=== PATIENT | female | born 1950 | race Caucasian/White ===

== ENCOUNTER 2018-06-21 15:12 | Emergency (ER) | payer OTHER ==
--- OUTSIDE RECORDS SUMMARY | 2018-06-21 15:13 | XMS REPORT ---
:1950 Author Organization [facility] Address [address] [place] [address] Care Team Providers Name Role Phone LICHA JEONG Primary Care Provider Unavailable LICHA JEONG Unavailable Unavailable Problems This patient has no known problems. Allergies, Adverse Reactions, Alerts This patient has no known allergies or adverse reactions. Medications This patient has no known medications. Results Test Description Test Time Test Comments Text Results Atomic Results Result Comments B-Type Natriuretic Peptide 2017-01-24 10:28:00 Test Item Value Reference Range Comments B-Type Natriuretic Peptide (test adzn=[id number]) 28.4 pg/mL 0.0-100.0 Sed Rate ESR ([place])2017-01-19 22:57:00 Test Item Value Reference Range Comments ESR (test code=HESR) 10 mm/Hr 0-20 Comprehensive Metabolic [id number] 21:35:00 Test Item Value Reference Range Comments Sodium (test code=NA) 138 mmol/L 135-145 Potassium (test code=K) 4.2 mmol/L 3.5-5.1 Chloride (test code=CL) 102 mmol/L 98-105 Carbon Dioxide (test 23 mmol/L 22-29 code=CO2) Glucose (test code=GLU) 110 mg/dL 70-115 Blood Urea Nitrogen (test 22 mg/dL 8-23 code=BUN) Creatinine (test 1.2 mg/dL 0.5-0.9 code=CREAT) Calcium (test code=CA) 9.3 mg/dL 8.3-10.5 Prot Total (test code=TP) 6.4 g/dL 6.4-8.3 Albumin (test code=ALB) 3.9 g/dL 3.5-5.2 A/G Ratio (test 1.6 Ratio code=AGRATIO) Globulin (test code=GLOB) 2.5 2.9-3.1 Bili Total (test 0.3 mg/dL 0.1-0.9 code=TBIL) Alk Phos (test 72 U/L 35-104 code=APHOS) AST (test code=AST) 25 U/L 1-32 ALT (test code=ALT) 35 U/L 1-33 BUN/Creatinine Ratio 18.3 (test code=BCRATIO) Anion Gap (test 13 mmol/L 7-16 code=AGAP) Estimated GFR (test 48 mL/min/1.73m2 eGFR (estimated Glomerular code=GFR) Filtration Rate) is an estimated value,calculated from the patient's serum creatinine using the MDRD equation.It is NOT the patient's actual GFR. The eGFR provides a more clinicallyuseful measure of kidney disease than serum creatinine alone.This calculation takes sex and race into account, if the informationis provided. If the race is not provided, and the patient isAfrican-Bangladeshi, multiply by 1.212. If sex is not provided, and thepatient is female, multiply by 0.742. Results for patients <18 years ofage have not been validated by the MDRD study and should be interpretedwith caution.eGFR Result Interpretation:eGFR > or=60 is in the Normal RangeeGFR < 60 may mean kidney diseaseeGFR < 15 may mean kidney failureRanges recommended by the National Kidney Foundation,http://nkdep.nih .gov Lipid [id number] 21:35:00 Test Item Value Reference Range Comments Cholesterol (test 229 mg/dL 0-200 code=CHOL) Triglycerides (test 125 mg/dL 9-200 code=TRIG) HDL (test code=HDL) 39 mg/dL 50-60 Chol/HDL (test 5.9 Ratio 0.0-4.4 code=CHOLPHDL) LDL, Calculated (test 165 mg/dL 0-130 (NOTE)RISK OF HEART code=LDLC) DISEASEPublished by Bangladeshi Heart AssociationAnalyte Optimal Boderline Increased RiskCHOL <200 200-239 >240TRIG <150 150-199 >200HDL Male: >60 <40HDL Female: >60 <50LDL <100 130-159 >160LDL NEAR OPTIMAL IS 100-129 VLDL (test code=VLDL) 25 mg/dL 5-40 LDL/HDL (test code=LDLPHDL) 4 CBC with [id number] 21:33:00 Test Item Value Reference Range Comments WBC (test code=WBC) 5.4 K/cumm 4.4-10.5 RBC (test code=RBC) 4.06 M/cumm 3.75-5.20 Hemoglobin (test code=HGB) 12.6 gm/dL 12.2-14.8 Hematocrit (test code=HCT) 39.1 % 36.5-44.4 MCV (test code=MCV) 96.2 fL 80-100 MCH (test code=MCH) 30.9 pg 27.0-32.5 MCHC (test code=MCHC) 32.1 g/dL 32.0-37.5 RDW (test code=RDW) 14.9 % 11.5-14.5 Platelet Count (test code=PLTCT) 212 K/cumm 140-440 MPV (test code=MPV) 10.3 fL Diff Method (test code=DIFFM) Auto Neutrophil (test code=NEUT) 44.1 % 36-70 Lymphocyte (test code=LYMPH) 42.0 % 12-44 Monocyte (test code=MONO) 7.0 % 0-11 Eosinophil (test code=EOS) 5.5 % 0-7 Basophil (test code=BASO) 1.4 % 0-2 Neutro Abs (test code=ANEUT) 2.4 K/cumm 1.6-7.4 Lymph Abs (test code=ALYMPH) 2.3 K/cumm 0.5-4.6 [place] Abs (test code=AMONO) 0.4 K/cumm 0.0-1.2 Eos Abs (test code=AEOS) 0.30 K/cumm 0.00-0.74 Baso Abs (test code=ABASO) 0.1 K/cumm 0.00-0.21
--- OUTSIDE RECORDS SUMMARY | 2018-06-21 15:13 | XMS REPORT | Clinical Summary ---
:1950 Author Organization [facility] Address [address] [place] [address] Care Team Providers Name Role Phone Riky Barajas MD Primary Care Provider Allergies Active Allergy Reactions Severity Noted Date Comments Ciprofloxacin 01/08/2017 Xbjibsj-Mda-Mnn Reductase Inhibitors 01/08/2017 Medications Medication Sig Dispensed Refills Start Date End Date Status irbesartan (AVAPRO) Take 150 mg by 0 Active 150 MG tablet mouth nightly. ALBUTEROL SULFATE Inhale. 0 Active (PROAIR HFA INHL) aspirin (ECOTRIN) 81 Take 81 mg by 0 Active MG enteric coated mouth daily. tablet traMADol (ULTRAM) 50 Take 1 tablet (50 15 tablet 0 09/18/2017 10/03/2017 mg tablet mg total) by mouth every 4 (four) hours as needed for moderate pain for up to 15 days. Active Problems Problem Noted Date Osteoarthritis of spine with radiculopathy, lumbar region 01/08/2017 Spondylolisthesis of lumbar region 01/08/2017 Scoliosis 01/08/2017 Neurogenic claudication 01/08/2017 Encounters Date Type Specialty Care Team Description 12/03/2017 Office Visit Orthopedic Surgery [place] Spondylosis of cervical region without myelopathy or radiculopathy (Primary Dx); MD Jake History of fusion of cervical spine; Spondylolisthesis of lumbar region; Other secondary scoliosis, lumbar region; Osteoarthritis of spine with radiculopathy, lumbar region 10/22/2017 Office Visit Orthopedic Surgery [place] Spondylolisthesis of lumbar region (Primary Dx); MD Jake Other secondary scoliosis, lumbar region; Osteoarthritis of spine with radiculopathy, lumbar region 09/18/2017 Office Visit Orthopedic Surgery Robin Barber Closed displaced fracture of metatarsal bone of left foot with routine healing, unspecified metatarsal, subsequent encounter (Primary Dx); MD Sidney Acute pain of left knee; Tendinitis 09/12/2017 Hospital Radiology Robin Barber Encounter MD Sidney 09/12/2017 Telephone Orthopedic Surgery [place], Bernarda Newman, ELYSSA 08/21/2017 Office Visit Orthopedic Surgery Robin Barber Closed displaced MD Sidney fracture of metatarsal bone of left foot with routine healing, unspecified metatarsal, subsequent encounter (Primary Dx) 08/21/2017 Hospital Radiology Robin Barber Closed fracture of shaft Encounter MD [place] of metatarsal bone of left foot, initial encounter 08/16/2017 Office Visit Orthopedic Surgery Robin Barber Acute left ankle pain (Primary Dx); MD Sidney Left foot pain; Closed fracture of shaft of metatarsal bone of left foot, initial encounter after 06/20/2017 Family History Medical History Relation Name Comments Cancer Father Heart disease Father Heart disease Mother Relation Name Status Comments Father Mother Social History Tobacco Use Types Packs/Day Years Used Date Never Smoker Smokeless Tobacco: Never Used Alcohol Use Drinks/Week oz/Week Comments No Sex Assigned at Date Recorded Not on file Job Start Date Occupation Industry Not on file Not on file Not on file Travel History Travel Start Travel End No recent travel history available. Last Filed Vital Signs Vital Sign Reading Time Taken Blood Pressure - - Pulse - - Temperature - - Respiratory Rate - - Oxygen Saturation - - Inhaled Oxygen Concentration - - Weight 109 kg (240 lb) 08/16/2017 1:15 PM ELEVATOR ERECTOR Height 177.8 cm (5' 10") 08/16/2017 1:15 PM ELEVATOR ERECTOR Body Mass Index 34.44 08/16/2017 1:15 PM ELEVATOR ERECTOR Plan of Treatment Health Maintenance Due Date Last Done Comments BREAST CANCER SCREENING 1999 COLON CANCER SCREENING 1999 SHINGRIX VACCINE (1 of 2) 1999 ZOSTER VACCINE 2009 PNEUMOCOCCAL POLYSACCHARIDE VACCINE AGE 65 AND OVER 2014 PNEUMOCOCCAL-13 2014 INFLUENZA VACCINE 02/27/2018 Procedures Procedure Name Priority Date/Time Associated Comments Diagnosis XR CERVICAL SPINE Routine 12/03/2017 1:33 Neck pain Results for this COMPLETE W FLEX EXT PM CDT procedure are in the results section. MI ARTHROCENTESIS Routine 09/18/2017 6:10 Tendinitis Results for this ASPIR&/INJ MAJOR PM ELEVATOR ERECTOR procedure are in JT/BURSA W/O US the results section. XR KNEE AP STANDING Routine 09/18/2017 2:13 Acute pain of left Results for this BILATERAL PM ELEVATOR ERECTOR knee procedure are in the results section. XR KNEE 3 VW LEFT Routine 09/18/2017 2:13 Acute pain of left Results for this PM ELEVATOR ERECTOR knee procedure are in the results section. CT LOWER EXTREMITY WO Routine 08/21/2017 8:58 Closed fracture of Results for this CONTRAST LEFT AM ELEVATOR ERECTOR shaft of procedure are in metatarsal bone of the results left foot, initial section. encounter XR ANKLE 3+ VW LEFT Routine 08/16/2017 1:28 Acute left ankle Results for this PM ELEVATOR ERECTOR pain procedure are in the results section. after 06/20/2017 Results XR Cervical Spine Complete w flex/ext (12/03/2017 1:33 PM CDT) Narrative Performed At 7 views of the cervical spine are reviewed. These demonstrate satisfactory [facility] sagittal and coronal balance. There is previous arthrodesis from C5-C7 with anterior plate and screws along with intervertebral cages. The arthrodesis appears to be solid. There is mild degeneration at C4-5 and C7-T1 with the latter being more severely affected. There is no instability on flexion-extension. Oblique views demonstrate satisfactory neural foraminal volume. Odontoid view is unremarkable. Performing Organization Address City/State/Zipcode Phone Number [facility] [address] [place] [address] Large Joint Arthrocentesis (09/18/2017 6:10 PM ELEVATOR ERECTOR) Narrative Performed At Robin Barber MD 09/18/20175:42 PM Large Joint Arthrocentesis Procedure Details Ultrasound guided: no Platelet Rich Plasma Used: no PRP Used Location: knee - L knee Left side: Needle size: 22 G Approach: medial Left knee medications administered: 10 mL bupivacaine 0.5 % (5 mg/mL); 10 mL lidocaine 10 mg/mL (1 %); 80 mg methylPREDNISolone acetate 40 mg/mL Patient tolerance: patient tolerated the procedure well with no immediate complications XR Knee Ap Standing Bilateral (09/18/2017 2:13 PM ELEVATOR ERECTOR) Narrative Performed At Bilateral Standing AP of the knees show no acute fracture, dislocation, or [facility] subluxation. The patella and knee is well aligned. Moderate osteoarthritis of the left knee with 50% joint space narrowing. Performing Organization Address City/State/Zipcode Phone Number FLORA MCINTOSH [address] [place] [address] XR Knee 3 Vw Left (09/18/2017 2:13 PM ELEVATOR ERECTOR) Narrative Performed At Bilateral PA Flex 45, Bilateral sunrise, and Lateral radiographs of the [facility] left knee obtained in clinic today show no acute fracture, dislocation, or subluxation. The patella is well aligned. There is evidence of moderate osteoarthritis of the left knee including subchondral sclerosis, osteophytes and >50% narrowing of the medial, lateral and patellofemoral compartments. Performing Organization Address [facility] [email or web address] Phone Number FLORA MCINTOSH [address] [place] [address] CT Lower Extremity Wo Contrast Left (08/21/2017 8:58 AM ELEVATOR ERECTOR) Narrative Performed At EXAMINATION:CT LOWER EXTREMITY WO CONTRAST LEFT [facility] CLINICAL HISTORY:S92.302A Fracture of unspecified metatarsal bone(s)left footinitial encounter for closed fracture, pain TECHNIQUE: Multiple axial images of the left lower extremity were obtained without contrast. CT imaging was performed with iterative reconstruction technique and/or automated exposure control to reduce radiation dose. 3-D volume imaging of the foot was performed using post processing on a separate workstation. COMPARISON:Left ankle radiographs dated 08/16/2017 FINDINGS: 1.There is a mildly comminuted nondisplaced fracture of the base of the second metatarsal laterally which extends into the second tarsometatarsal joint. 2.There is a nondisplaced fracture of the medial base of the third metatarsal which does not appear to definitively violate the third tarsometatarsal joint. 3.There is a nondisplaced fracture of the base of the fourth metatarsal with minimal extension of the fracture line into the fourth tarsometatarsal joint. 4.There is no evidence of a fracture of the base of the fifth metatarsal nor is there evidence of a fracture of the first metatarsal. 5.There is no evidence of malalignment of the tarsometatarsal complex. 6.There is no evidence of a fracture of the distal metatarsals or any of the phalanges. The cuneiforms and cuboid appear intact. The hindfoot appears intact. 7.Os navicular and os peroneum. Minimal nonspecific sclerosis of the hallux sesamoid bones. 8.Evaluation of the soft tissues demonstrates circumferential soft tissue swelling of the hindfoot and midfoot. There is no abnormal subluxation of the peroneal tendons. The flexor and extensor tendons appear continuous. Insertional Achilles enthesopathy and plantar calcaneal enthesopathy. IMPRESSION: 1.Fractures of the bases of the second, third, and fourth metatarsals as detailed above. 2.No evidence of malalignment of the tarsometatarsal complex. If there is evidence of instability, consider further evaluation with MRI to assess the integrity of the Lisfranc ligament. [facility]-[id number] Procedure Note [facility], Radiology Results Incoming - 08/21/2017 9:13 AM ELEVATOR ERECTOR EXAMINATION: CT LOWER EXTREMITY WO CONTRAST LEFT CLINICAL HISTORY: S92.302A Fracture of unspecified metatarsal bone(s) left foot initial encounter for closed fracture, pain TECHNIQUE: Multiple axial images of the left lower extremity were obtained without contrast. CT imaging was performed with iterative reconstruction technique and/or automated exposure control to reduce radiation dose. 3-D volume imaging of the foot was performed using post processing on a separate workstation. COMPARISON: Left ankle radiographs dated 08/16/2017 FINDINGS: 1. There is a mildly comminuted nondisplaced fracture of the base of the second metatarsal laterally which extends into the second tarsometatarsal joint. 2. There is a nondisplaced fracture of the medial base of the third metatarsal which does not appear to definitively violate the third tarsometatarsal joint. 3. There is a nondisplaced fracture of the base of the fourth metatarsal with minimal extension of the fracture line into the fourth tarsometatarsal joint. 4. There is no evidence of a fracture of the base of the fifth metatarsal nor is there evidence of a fracture of the first metatarsal. 5. There is no evidence of malalignment of the tarsometatarsal complex. 6. There is no evidence of a fracture of the distal metatarsals or any of the phalanges. The cuneiforms and cuboid appear intact. The hindfoot appears intact. 7. Os navicular and os peroneum. Minimal nonspecific sclerosis of the hallux sesamoid bones. 8. Evaluation of the soft tissues demonstrates circumferential soft tissue swelling of the hindfoot and midfoot. There is no abnormal subluxation of the peroneal tendons. The flexor and extensor tendons appear continuous. Insertional Achilles enthesopathy and plantar calcaneal enthesopathy. IMPRESSION: 1. Fractures of the bases of the second, third, and fourth metatarsals as detailed above. 2. No evidence of malalignment of the tarsometatarsal complex. If there is evidence of instability, consider further evaluation with MRI to assess the integrity of the Lisfranc ligament. [facility]-[id number] Performing Organization Address [facility] [[email or web address] Phone Number [facility] [address] [place] [address] XR Ankle 3+ Vw Left (08/16/2017 1:28 PM ELEVATOR ERECTOR) Narrative Performed At Left ankle x-rays 3 views AP, mortise, lateral show no acute subluxation [facility] or dislocation. Possible non-displaced fracture at the base of the fifth metatarsal. Evidence of possible old injury to the medial malleolus. Performing Organization Address [facility] [[email or web address] Phone Number [facility] [address] [place] [address] after 06/20/2017 Insurance Payer Benefit Plan / Group Subscriber ID Type Phone Address AETNA MEDICARE AETNA MEDICARE HMO/PPO [facility] xxxxxxxx HMO Advance Directives Patient has advance care planning documents on file. For more information, please contact:Newton Irizarry[address] [place] [address]
[2018-06-21 16:15] LABS: Absolute Lymphocytes (CBC) 1.1 K/uL (0.7-4.9); Absolute Monocytes 0.1 K/uL (0.1-1.3); Absolute Neutrophil 6.5 K/uL (1.8-8.0); Basophils % 0.4 % (0-1.3); Eosinophils % 0.2 % (0-4.4); Hematocrit 39.1 % (36.0-45.0); MCH 31.7 pg (27.0-35.0); MCV 92.3 fL (80-100); MPV 8.6 fL (7.6-11.3); Monocytes % 0.7 % (3.3-12.3); RBC Red Blood Cell Count 4.24 M/uL (3.86-4.86)
[2018-06-21 16:18] LABS: Protime INR 1.05
[2018-06-21 16:38] LABS: ALT/SGPT 48 U/L (12-78); AST/SGOT 31 U/L (15-37); Albumin 3.5 g/dL (3.4-5.0); Alkaline Phosphatase 99 U/L (45-117); BUN Blood Urea Nitrogen 19 mg/dL (7-18); Bicarbonate 24 mmol/L (21-32); Bilirubin Direct < 0.1 mg/dL (0-0.2); Bilirubin Total 0.3 mg/dL (0.2-1.0); Glucose Level 179 mg/dL (74-106); Magnesium 2.2 mg/dL (1.8-2.4); NT PRO-BNP 103 pg/mL (<125); Potassium 3.8 mmol/L (3.5-5.1); Protein, Total 7.3 g/dL (6.4-8.2); Sodium Level 143 mmol/L (136-145); T3 Free 2.52 pg/mL (2.18-3.98); Troponin (Emerg Dept Use Only) < 0.02 ng/mL (0.0-0.045)
[2018-06-21] MEDS ORDERED: NA CHLORIDE 0.9% 500 ML ONE (17:31)
--- NOTE | 2018-06-21 18:21 | RAD REPORT ---
EXAM DESCRIPTION: RAD - Chest Pa And Lat (2 Views) - 06/21/2018 4:33 pm CLINICAL HISTORY: Chest pain, cough and congestion, palpitations COMPARISON: September 2013 TECHNIQUE: PA and lateral views of the chest were obtained. FINDINGS: The lungs are clear of a peripheral mass or consolidation. Lung markings are similar to c omparison. Heart size is normal and central vasculature is within normal limits. No pleural effusion or pneumothorax seen. Bony degenerative changes are present similar to comparison. No aortic abnorm ality. IMPRESSION: Mild chronic interstitial lung disease similar to comparison. No acute finding.
--- NOTE | 2018-06-21 19:33 | ER ---
Nurse's Notes [facility] Name: Moraima Handy Age: 68 yrs Sex: Female : 1950 Arrival Date: 06/21/2018 Time: 15:15 Bed 6 Private MD: Riky Barajas Diagnosis: Cough;Other chest pain;Palpitations Presentation: 06/21 15:18 Presenting complaint: Patient states: "I was seen at urgent care this morning for a aa5 cough, congestion, and ear ache and they gave me a steroid shot and a few hours later I started having chest pain and palpitations". Pt reports being diagnosed with acute pharyngitis and sinusitis today. Pt reports receiving steroid injection approximately at 0930 and symptoms began at 1200. Pt also reports taking Albuterol inhaler, Z-adrienne, and Tessalon Perles. Transition of care: patient was not received from another setting of care. Onset of symptoms was May 2018. Risk Assessment: Do you want to hurt yourself or someone else? Patient reports no desire to harm self or others. Initial Sepsis Screen: Does the patient meet any 2 criteria? No. Patient's initial sepsis screen is negative. Does the patient have a suspected source of infection? No. Patient's initial sepsis screen is negative. Care prior to arrival: None. 15:18 Method Of Arrival: Ambulatory aa5 15:18 Acuity: ANIKA 3 aa5 Triage Assessment: 15:30 General: Appears in no apparent distress. comfortable, obese, Behavior is cooperative, bp appropriate for age, anxious. Pain: Complains of pain in chest. Cardiovascular: Rhythm is sinus tachycardia. 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 - Social history:: Smoking status: Patient/guardian denies using tobacco. - Ebola Screening: : No symptoms or risks identified at this time. Screenin:32 Abuse screen: Denies threats or abuse. Denies injuries from another. Nutritional bp screening: No deficits noted. Tuberculosis screening: No symptoms or risk factors identified. Fall Risk None identified. Assessment: 15:30 General: Appears in no apparent distress. comfortable, obese, Behavior is cooperative, bp appropriate for age, anxious. Pain: Complains of pain in chest Pain does not radiate. Pain began 3 hours ago. Neuro: Level of Consciousness is awake, alert, obeys commands, Oriented to person, place, time, situation, Appropriate for age. Cardiovascular: Rhythm is sinus rhythm. Respiratory: Airway is patent Respiratory effort is even, unlabored, Respiratory pattern is regular, symmetrical. GI: No signs and/or symptoms were reported involving the gastrointestinal system. : No signs and/or symptoms were reported regarding the genitourinary system. EENT: No deficits noted. Derm: No deficits noted. Musculoskeletal: Circulation, motion, and sensation intact. Range of motion: intact in all extremities. 17:32 Reassessment: ALL CURRENT STUDIES COMPLETED, RESULTS PENDING. VS STABLE ON MONITOR. bp 19:15 General: Appears in no apparent distress. comfortable, Behavior is calm, cooperative, rr5 appropriate for age. Pain: Denies pain. Neuro: Level of Consciousness is awake, alert, obeys commands, Oriented to person, place, time, situation, Appropriate for age. Cardiovascular: Denies chest pain, Capillary refill < 3 seconds Patient's skin is warm and dry. Respiratory: Airway is patent Respiratory effort is even, unlabored, Respiratory pattern is regular, symmetrical. GI: No signs and/or symptoms were reported involving the gastrointestinal system. : No signs and/or symptoms were reported regarding the genitourinary system. EENT: No signs and/or symptoms were reported regarding the EENT system. Derm: No signs and/or symptoms reported regarding the dermatologic system. Musculoskeletal: Circulation, motion, and sensation intact. Capillary refill < 3 seconds, Range of motion: intact in all extremities. 19:30 Reassessment: awaiting for laboratory results. rr5 Vital Signs: 15:23 BP 148 / 67; Pulse 102; Resp 18 S; Temp 98.0(TE); Pulse Ox 98% on R/A; Weight 104.33 kg aa5 (R); Height 5 ft. 10 in. (177.80 cm) (R); Pain 5/10; 16:30 BP 126 / 57; Pulse 97; Resp 16; Pulse Ox 99% ; bp 17:30 BP 150 / 70; Pulse 103; Resp 20; Pulse Ox 100% ; bp 18:30 BP 131 / 57; Pulse 91; Resp 27; Pulse Ox 100% ; bp 19:15 BP 145 / 65; Pulse 87; Resp 17; Temp 97.8(T); Pulse Ox 100% on R/A; Pain 0/10; rr5 20:00 BP 135 / 75; Pulse 80; Resp 17; Pulse Ox 99% on R/A; rr5 15:23 Body Mass Index 33.00 (104.33 kg, 177.80 cm) aa5 ED Course: 15:15 Patient arrived in ED. mr 15:16 Riky Barajas MD is Private Physician. mr 15:18 Arm band placed on. aa5 15:22 Triage completed. aa5 15:25 Alessandro Ferreira PA is PHCP. cp 15:25 Alessandro Ford MD is Attending Physician. cp 15:30 Natanael Jasso, JOSÉ MIGUEL is Primary Nurse. bp 15:32 Patient has correct armband on for positive identification. Bed in low position. Call bp light in reach. Side rails up X2. erp technical lead on. Pulse ox on. NIBP on. 16:04 Initial lab(s) drawn, by me, sent to lab. Inserted saline lock: 20 gauge in right jb1 antecubital area, using aseptic technique. Blood collected. 16:04 EKG done, by ED staff, reviewed by Alessandro ANDERSEN. jb1 16:31 X-ray completed. Patient tolerated procedure well. Patient moved back from radiology. ls3 16:32 XRAY Chest Pa And Lat (2 Views) In Process Unspecified. EDMS 19:15 Patient maintains SpO2 saturation greater than 95% on room air. rr5 19:32 Riky Barajas MD is Referral Physician. cp 20:00 No provider procedures requiring assistance completed. IV discontinued, intact, rr5 bleeding controlled, No redness/swelling at site. Pressure dressing applied. Administered Medications: 16:20 Drug: NS 0.9% 500 ml Route: IV; Rate: bolus; Site: right antecubital; bp Outcome: 19:32 Discharge ordered by . cp 19:55 Discharged to home ambulatory. rr5 19:55 Condition: stable 19:55 Discharge instructions given to patient, family, Instructed on discharge instructions, follow up and referral plans. medication usage, Demonstrated understanding of instructions, follow-up care, medications, Prescriptions given X 2. 20:00 Patient left the ED. lp1 Signatures: Dispatcher [employer] EDRoni Morrow jb1 Mcelroy, Larissa mr Alessio, Trisha, RN RN aa5 Ailyn Farias RN RN lp1 Alessandro Ferreira PA PA cp Peltier, Brian, RN RN bp Giorgi Francisco ls3 John Weiss, RN RN rr5
--- NOTE | 2018-06-21 19:33 | EDPHYS ---
Physician Documentation [facility] Name: Moraima Handy Age: 68 yrs Sex: Female : 1950 Arrival Date: 06/21/2018 Time: 15:15 Bed 6 Private MD: Riky Barajas ED Physician Alessandro Ford HPI: 06/21 15:50 This 68 yrs old Female presents to ER via Ambulatory with complaints of Chest cp Pain. 15:50 The patient presents with a history of heart racing. cp 15:50 Context: The symptoms occur at rest. Onset: The symptoms/episode began/occurred today. cp Duration: The patient or guardian reports a single episode, that is still ongoing, and unchanged. Associated signs and symptoms: Pertinent positives: chest pain, cough, Pertinent negatives: SOB, syncope, near-syncope. Severity of symptoms: in the emergency department the symptoms are unchanged despite home interventions. 15:50 Patient reports receiving steroid injection from urgent care this morning for cp cough/congestion and while at home starting noticing heart racing and mild chest pain. Patient reports she did give herself an albuterol breathing treatment but after symptoms started. 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 - Social history:: Smoking status: Patient/guardian denies using tobacco. - Ebola Screening: : No symptoms or risks identified at this time. ROS: 16:00 Constitutional: Negative for body aches, chills, fever, poor PO intake. cp 16:00 Eyes: Negative for injury, pain, redness, and discharge. cp 16:00 ENT: Negative for drainage from ear(s), ear pain, difficulty swallowing, difficulty handling secretions. 16:00 Cardiovascular: Positive for chest pain, with cough, palpitations, Negative for edema. 16:00 Respiratory: Positive for cough, with no reported sputum, Negative for shortness of breath, wheezing. 16:00 Abdomen/GI: Negative for abdominal pain, nausea, vomiting, and diarrhea, black/tarry stool, rectal bleeding. 16:00 Back: Negative for radiated pain. 16:00 Skin: Negative for cellulitis, rash. 16:00 Neuro: Negative for altered mental status, headache, numbness, weakness. 16:00 All other systems are negative. Exam: 16:05 Constitutional: The patient appears in no acute distress, alert, awake, comfortable, cp non-diaphoretic, non-toxic, well developed, well nourished. 16:05 Head/Face: Normocephalic, atraumatic. Eyes: Pupils equal round and reactive to light, cp extra-ocular motions intact. Lids and lashes normal. Conjunctiva and sclera are non-icteric and not injected. Cornea within normal limits. Periorbital areas with no swelling, redness, or edema. ENT: Nares patent. No nasal discharge, no septal abnormalities noted. Tympanic membranes are normal and external auditory canals are clear. Oropharynx with no redness, swelling, or masses, exudates, or evidence of obstruction, uvula midline. Mucous membranes moist. Neck: Trachea midline, no thyromegaly or masses palpated, and no cervical lymphadenopathy. Supple, full range of motion without nuchal rigidity, or vertebral point tenderness. No Meningismus. Chest/axilla: Normal chest wall appearance and motion. Nontender with no deformity. No lesions are appreciated. 16:05 Cardiovascular: Rate: tachycardic, Rhythm: regular, Heart sounds: murmur, not appreciated, rub, not appreciated, gallop, not appreciated, Edema: is not appreciated, JVD: is not appreciated. 16:05 Respiratory: the patient does not display signs of respiratory distress, Respirations: normal, no use of accessory muscles, no retractions, no splinting, no tachypnea, labored breathing, is not present, Breath sounds: decreased breath sounds, are not appreciated, stridor, is not appreciated, wheezing: is not appreciated. 16:05 Abdomen/GI: Inspection: abdomen appears normal, Bowel sounds: active, all quadrants, Palpation: abdomen is soft and non-tender, in all quadrants, rebound tenderness, is not appreciated, involuntary guarding, is not appreciated. 16:05 Back: pain, is absent, ROM is normal. 16:05 Skin: cellulitis, is not appreciated, no rash present. 16:05 Neuro: Orientation: to person, place \T\ time. Mentation: is normal, Cerebellar function: is grossly normal, Motor: moves all fours, strength is normal, Sensation: is normal. 19:00 ECG was reviewed by the Attending Physician. cp Vital Signs: 15:23 BP 148 / 67; Pulse 102; Resp 18 S; Temp 98.0(TE); Pulse Ox 98% on R/A; Weight 104.33 kg aa5 (R); Height 5 ft. 10 in. (177.80 cm) (R); Pain 5/10; 16:30 BP 126 / 57; Pulse 97; Resp 16; Pulse Ox 99% ; bp 17:30 BP 150 / 70; Pulse 103; Resp 20; Pulse Ox 100% ; bp 18:30 BP 131 / 57; Pulse 91; Resp 27; Pulse Ox 100% ; bp 19:15 BP 145 / 65; Pulse 87; Resp 17; Temp 97.8(T); Pulse Ox 100% on R/A; Pain 0/10; rr5 20:00 BP 135 / 75; Pulse 80; Resp 17; Pulse Ox 99% on R/A; rr5 15:23 Body Mass Index 33.00 (104.33 kg, 177.80 cm) aa5 MDM: 15:25 Patient medically screened. cp 16:00 Differential diagnosis: arrythmia, dehydration, anxiety, acute WA. cp 19:30 Data reviewed: vital signs, nurses notes, lab test result(s), EKG, radiologic studies, cp plain films, and as a result, I will discharge patient. 19:30 Test interpretation: by ED physician or midlevel provider: ECG, plain radiologic cp studies. 19:31 Response to treatment: the patient's symptoms have markedly improved after treatment, cp VSS. Patient reports symptoms improved. Will discharge to home for continued monitoring. 06/21 15:46 Order name: Basic Metabolic Panel; Complete Time: 16:46 cp 06/21 16:46 Interpretation: Normal except: CL 110; GLUC 179; BUN 19; GFR 49. cp 06/21 15:46 Order name: CBC with Diff; Complete Time: 16:36 cp 06/21 16:36 Interpretation: Normal except: JANY% 84.7; LYM% 14.0; MN% 0.7. cp 06/21 15:46 Order name: LFT's; Complete Time: 16:46 cp 06/21 16:46 Interpretation: Normal except: GLOB 3.8; A/G 0.9. cp 06/21 15:46 Order name: Magnesium; Complete Time: 16:46 cp 06/21 15:46 Order name: NT PRO-BNP; Complete Time: 16:46 cp 06/21 15:46 Order name: PT-INR; Complete Time: 16:36 cp 06/21 15:46 Order name: Troponin (emerg Dept Use Only); Complete Time: 16:46 06/21 15:46 Order name: EKG; Complete Time: 15:47 cp 06/21 15:46 Order name: TSH; Complete Time: 16:46 cp 06/21 15:46 Order name: T3 Free; Complete Time: 16:46 06/21 16:08 Order name: XRAY Chest Pa And Lat (2 Views); Complete Time: 18:27 cp 06/21 18:27 Order name: EKG; Complete Time: 18:29 cp 06/21 18:27 Order name: Troponin I; Complete Time: 19:24 06/21 15:46 Order name: Cardiac monitoring; Complete Time: 15:49 06/21 15:46 Order name: EKG - Nurse/Tech; Complete Time: 15:49 cp 06/21 15:46 Order name: IV Saline Lock; Complete Time: 16:04 06/21 15:46 Order name: Labs collected and sent; Complete Time: 16:04 06/21 15:46 Order name: O2 Per Protocol; Complete Time: 15:49 06/21 15:46 Order name: O2 Sat Monitoring; Complete Time: 15:49 06/21 18:27 Order name: EKG - Nurse/Tech; Complete Time: 18:57 cp EC:00 Rate is 92 beats/min. Rhythm is regular. MA interval is normal. QRS interval is normal. cp QT interval is normal. T waves are Flattened in lead III. Interpreted by me. Reviewed by me. Administered Medications: 16:20 Drug: NS 0.9% 500 ml Route: IV; Rate: bolus; Site: right antecubital; bp Disposition: 06/21/18 19:32 Discharged to Home. Impression: Cough, Other chest pain, Palpitations. - Condition is Stable. - Discharge Instructions: Nonspecific Chest Pain, Palpitations, Cool Mist Vaporizer, Aspirin and Your Heart. - Prescriptions for Anaprox DS 550 mg Oral Tablet - take 1 tablet by ORAL route every 12 hours As needed; 20 tablet. Pepcid 20 mg Oral Tablet - take 1 tablet by ORAL route every 12 hours for 5 days; 10 tablet. - Medication Reconciliation Form, Thank You Letter, Antibiotic Education, Prescription Opioid Use form. - Follow up: Riky Barajas MD; When: 2 - 3 days; Reason: Recheck today's complaints. - Problem is new. - Symptoms have improved. Addendum: 06/24/2018 08:14 Co-signature as Attending Physician, Alessandro Ford MD I agree with the assessment and c mcdaniel plan of care. Signatures: Dispatcher [employer] EDGA Alessandro Ford MD MD cha Calderon, Audri, RN RN aa5 Ailyn Farias RN RN lp1 Alessandro Ferreira PA PA Natanael James, RN RN bp Corrections: (The following items were deleted from the chart) 06/21 20:00 19:32 06/21/2018 19:32 Discharged to Home. Impression: Cough; Other chest pain; lp1 Palpitations. Condition is Stable. Forms are Medication Reconciliation Form, Thank You Letter, Antibiotic Education, Prescription Opioid Use. Follow up: Riky Barajas; When: 2 - 3 days; Reason: Recheck today's complaints. Problem is new. Symptoms have improved. cp
--- NOTE | 2018-06-22 06:59 | EKG ---
Test Date: 2018-06-21 Test Time: 18:50:04 [employer]mw Sales Consultant: LINDA MEASUREMENT RESULTS: Intervals: Rate: 92 NM: 154 QRSD: 94 QT: 388 QTc: 479 [place]: P: 48 NM: 154 QRS: -12 T: 27 INTERPRETIVE STATEMENTS: Normal sinus rhythm Normal ECG Compared to ECG 06/21/2018 15:39:17 ST (T wave) deviation no longer present Electronically Signed On 06-22-18 06:58:44 RESOURCE MANAGER by Lee Sy
--- NOTE | 2018-06-22 07:01 | EKG ---
Test Date: 2018-06-21 Test Time: 15:39:17 City Planning Aide: LINDA MEASUREMENT RESULTS: Intervals: Rate: 100 UT: 150 QRSD: 94 QT: 374 QTc: 482 [place]: P: 60 UT: 150 QRS: -16 T: 53 INTERPRETIVE STATEMENTS: Normal sinus rhythm Nonspecific ST abnormality Abnormal ECG Compared to ECG 10/24/2013 07:24:46 ST (T wave) deviation now present Electronically Signed On 06-22-18 07:00:28 DRESSAGE INSTRUCTOR by Lee Sy
== END 2018-06-21 20:00 | disposition home or self-care (01) ==
LOC: ER 15:12
DX: R07.89 Other chest pain (principal); R00.2 Palpitations; I10 Essential (primary) hypertension; Z88.1 Allergy status to other antibiotic agents
CPT/HCPCS: 36415; 71046; 80048; 80076; 83735; 83880; 84443; 84481; 84484; 85025; 85610; 93005; 99285

== ENCOUNTER 2019-03-19 00:09 | Emergency (ER) | payer OTHER ==
--- OUTSIDE RECORDS SUMMARY | 2019-03-19 00:12 | XMS REPORT | Clinical Summary ---
:1950 Author Organization [facility] Address [address] [place] [address] Care Team Providers Name Role Phone Riky Barajas MD Primary Care Provider Allergies Active Allergy Reactions Severity Noted Date Comments Ciprofloxacin 01/08/2017 Hiokgig-Ruk-Eep Reductase Inhibitors 01/08/2017 Medications Medication Sig Dispensed Refills Start Date End Date Status irbesartan Take 150 mg 0 Active (AVAPRO) 150 MG by mouth tablet nightly. ALBUTEROL Inhale. 0 Active SULFATE (PROAIR HFA INHL) aspirin Take 81 mg by 0 Active (ECOTRIN) 81 MG mouth daily. enteric coated tablet gabapentin Take 1 90 capsule 1 08/07/2018 Discontinued (NEURONTIN) 100 capsule (100 9 (Reorder) mg capsule mg total) by mouth 3 (three) times a day for 30 days. celecoxib Take 1 60 capsule 0 08/07/2018 (CeleBREX) 100 capsule (100 9 MG capsule mg total) by mouth 2 (two) times a day for 30 days. gabapentin Take 1 90 capsule 1 09/03/2018 (NEURONTIN) 100 capsule (100 9 mg capsule mg total) by mouth 3 (three) times a day for 30 days. Active Problems Problem Noted Date Osteoarthritis of spine with radiculopathy, lumbar region 01/08/2017 Spondylolisthesis of lumbar region 01/08/2017 Scoliosis 01/08/2017 Neurogenic claudication 01/08/2017 Encounters Date Type Specialty Care Team Description 10/17/2018 Orders Only Orthopedic Surgery [place] Spondylolisthesis of lumbar region (Primary Dx); MD Jake Other spondylosis with radiculopathy, lumbar region; Other secondary scoliosis, lumbar region 10/16/2018 Office Visit Orthopedic Surgery [place] Other spondylosis with radiculopathy, lumbar region (Primary Dx); MD Jake Spondylolisthesis of lumbar region; Other secondary scoliosis, lumbar region 09/03/2018 Refill Orthopedic Surgery [place] MD 08/07/2018 Office Visit Orthopedic Surgery [place] Other spondylosis with radiculopathy, lumbar region (Primary Dx); MD Jake Spondylolisthesis of lumbar region; Other secondary scoliosis, lumbar region after 03/18/2018 Family History Medical History Relation Name Comments [...] travel history available. 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 after 03/18/2018 Results XR Lumbar Spine Complete W Flex and Ext (08/07/2018 3:45 PM MUSIC WORKER) Specimen Narrative Performed At 7 views of the lumbar spine are reviewed.These demonstrate satisfactory HM RADIANT coronal balance.The patient stands with a level pelvis.There is a degenerative appearing lumbar scoliosis present in the AP radiograph. There are 4 mobile lumbar segments based on the AP radiograph as judged from the last rib bearing segment which I labeled T12.Lateral view demonstrates satisfactory sagittal balance.There is multiple levels of disc degeneration with osteophyte formation.There is a grade 1 degenerative spondylolisthesis at L4-L5 with a transitional L5-S1 segment. There is no instability on flexion-extension views aside from a mild increase in the spondylolisthesis at L4-L5.Oblique views demonstrate multilevel bilateral facet joint osteoarthritis. Performing Organization Address [facility] Phone Number [employer] [address] [place] [address] after 03/18/2018 Insurance Payer Benefit Plan / Subscriber ID Effective Dates Phone Address Type Group AETNA MEDICARE AETNA MEDICARE xxxxxxxx 2014-Present HMO HMO/PPO [facility] Guarantor Name Account Type Relation to Date of Phone Billing Patient Address Moraima Handy Personal/Family Self 1950 [address] (Home) [place] [phone] (Work) Advance Directives For more information, please contact: [phone] Type Date Recorded Patient Dirt Shoveler Explanation Advance Directives, Living Will and Medical Power of Power Shovel Engineer
--- OUTSIDE RECORDS SUMMARY | 2019-03-19 00:12 | XMS REPORT ---
:1950 [facility] Address [address] [place] [address] Care Team Providers Name Role Phone LICHA [...] Reference Range Comments B-Type Natriuretic Peptide (test prry=243988) 28.4 pg/mL 0.0-100.0 Sed Rate ESR ([place])2017-01-19 22:57:00 Test Item Value Reference Range Comments ESR (test code=HESR) 10 mm/Hr 0-20 Comprehensive Metabolic [id number] 21:35:00 Test Item Value Reference Range Comments [...] race is not provided, and the patient isAfrican-Afghan, multiply by 1.212. If sex is not provided, and thepatient is female, multiply by 0.742. Results for patients <18 years ofage have not been validated by the MDRD study and should be interpretedwith caution.eGFR Result Interpretation:eGFR > or=60 is in the Normal RangeeGFR < 60 may mean kidney diseaseeGFR < 15 may mean kidney failureRanges recommended by the National Kidney Foundation,http://nkdep.nih .gov Lipid [id number] 21:35:00 Test Item Value Reference Range Comments Cholesterol (test 229 mg/dL 0-200 code=CHOL) Triglycerides (test 125 mg/dL 9-200 code=TRIG) HDL (test code=HDL) 39 mg/dL 50-60 Chol/HDL (test 5.9 Ratio 0.0-4.4 code=CHOLPHDL) LDL, Calculated (test 165 mg/dL 0-130 (NOTE)RISK OF HEART code=LDLC) DISEASEPublished by Afghan Heart AssociationAnalyte Optimal Boderline Increased RiskCHOL <200 200-239 >240TRIG <150 150-199 >200HDL Male: >60 <40HDL Female: >60 <50LDL <100 130-159 >160LDL NEAR OPTIMAL IS 100-129 VLDL (test code=VLDL) 25 mg/dL 5-40 LDL/HDL (test code=LDLPHDL) 4 CBC with [id number] 21:33:00 Test Item Value Reference Range Comments [...] Lymph Abs (test code=ALYMPH) 2.3 K/cumm 0.5-4.6 Stevens Abs (test code=AMONO) 0.4 K/cumm 0.0-1.2 Eos Abs (test code=AEOS) 0.30 K/cumm 0.00-0.74 Baso Abs (test code=ABASO) 0.1 K/cumm 0.00-0.21
[2019-03-19] MEDS ORDERED: NA CHLORIDE 0.9% 1,000 ML ONE (01:03)
[2019-03-19] MEDS ORDERED: ACETAMINOPHEN 500 MG TAB ONE (01:03)
[2019-03-19 01:14] LABS: Absolute Lymphocytes (CBC) 1.5 K/uL (0.7-4.9); Basophils % 0.9 % (0-1.3); Hematocrit 40.5 % (36.0-45.0); Lymphocytes % 15.8 % (15.3-44.8); MPV 8.6 fL (7.6-11.3); RBC Red Blood Cell Count 4.34 M/uL (3.86-4.86)
[2019-03-19 01:16] LABS: Urine Blood 1+ (NEG); Urine Glucose NEGATIVE (NEG); Urine Protein NEGATIVE (NEG); Urine Specific Gravity 1.025 (1.005-1.030)
[2019-03-19 01:35] LABS: ALT/SGPT 41 U/L (12-78); AST/SGOT 27 U/L (15-37); Albumin 3.5 g/dL (3.4-5.0); Alkaline Phosphatase 108 U/L (45-117); BUN Blood Urea Nitrogen 21 mg/dL (7-18); Bicarbonate 28 mmol/L (21-32); Bilirubin Direct < 0.1 mg/dL (0-0.2); Bilirubin Total 0.3 mg/dL (0.2-1.0); Glucose Level 102 mg/dL (74-106); Lipase 142 U/L (73-393); NT PRO-BNP 43 pg/mL (<125); Potassium 3.9 mmol/L (3.5-5.1); Protein, Total 6.9 g/dL (6.4-8.2); Sodium Level 144 mmol/L (136-145); Troponin (Emerg Dept Use Only) < 0.02 ng/mL (0.0-0.045)
[2019-03-19] MEDS ORDERED: CEFTRIAXONE/SWI 1gm 1 GM/10 ML SYR ONE (02:29)
--- NOTE | 2019-03-19 03:04 | ER ---
Nurse's Notes [facility] Name: Moraima Handy Age: 68 yrs Sex: Female : 1950 Arrival Date: 03/19/2019 Time: 00:11 Bed 18 Private MD: Diagnosis: Headache;Urinary tract infection, site not specified Presentation: 03/19 00:22 Presenting complaint: Patient states: pt c/o fatigue, chills, fever, back pain, neck ak1 pain, headache pain started at 199903/18/19. Transition of care: patient was not received from another setting of care. Onset of symptoms was March 19, 2019. Risk Assessment: Do you want to hurt yourself or someone else? Patient reports no desire to harm self or others. Initial Sepsis Screen: Does the patient meet any 2 criteria? No. Patient's initial sepsis screen is negative. Does the patient have a suspected source of infection? No. Patient's initial sepsis screen is negative. Care prior to arrival: None. 00:22 Acuity: ANIKA 3 ak1 00:22 Method Of Arrival: Ambulatory ak1 Triage Assessment: 00:24 General: Appears uncomfortable, well groomed. ak1 03:22 Headache History: Denies prior headaches. Pain: Also complains of. Pain: Pain. tr5 Historical: - Allergies: 00:24 Cipro; ak1 - Home Meds: 00:24 irbesartan 150 mg oral tab 1 tab once daily [Active]; ak1 - PMHx: 00:24 Hypertension; ak1 - PSHx: 00:24 vericose veins treated left leg 04/2013; Hysterectomy; Appendectomy; Neck ak1 surgery-hardware; Back surgery; Cholecystectomy; - Immunization history:: Adult Immunizations unknown. - Social history:: Smoking status: Patient/guardian denies using tobacco. - Ebola Screening: : No symptoms or risks identified at this time. - Family history:: not pertinent. Screenin/20 12:55 Abuse screen: Denies threats or abuse. Nutritional screening: No deficits noted. tr5 Tuberculosis screening: No symptoms or risk factors identified. Fall Risk None identified. Assessment: 12:50 General: Appears in no apparent distress. Behavior is calm, cooperative. Pain: tr5 Complains of pain in face Pain does not radiate. Quality of pain is described as aching, pressure, Pain began gradually, Is continuous, Alleviated by rest. Neuro: Level of Consciousness is awake, alert, obeys commands, Oriented to person, place, time, situation, Popcorn Vendor are equal bilaterally Moves all extremities. Gait is steady, Speech is normal. Neuro:. Cardiovascular: Heart tones present Bruits absent Capillary refill < 3 seconds. Respiratory: Airway is patent Trachea midline Respiratory effort is even, unlabored, Respiratory pattern is regular, symmetrical, Breath sounds are clear bilaterally. GI: No signs and/or symptoms were reported involving the gastrointestinal system. : No signs and/or symptoms were reported regarding the genitourinary system. EENT: No signs and/or symptoms were reported regarding the EENT system. Derm: No signs and/or symptoms reported regarding the dermatologic system. Skin is intact, Skin is dry, Skin is normal. Musculoskeletal: Capillary refill < 3 seconds, Range of motion: intact in all extremities. 03/19 02:00 Reassessment: Patient and/or family updated on plan of care and expected duration. Pain tr5 level reassessed. Patient is alert, oriented x 3, equal unlabored respirations, skin warm/dry/pink. 03:11 Reassessment: Patient and/or family updated on plan of care and expected duration. Pain tr5 level reassessed. Patient is alert, oriented x 3, equal unlabored respirations, skin warm/dry/pink. Vital Signs: 00:21 BP 153 / 65; Pulse 86; Resp 16; Temp 99(O); Pulse Ox 98% on R/A; Weight 116.12 kg (R); ak1 Height 5 ft. 10 in. (177.80 cm) (R); Pain 10/10; 01:30 BP 148 / 70; Pulse 80; Resp 16; Pulse Ox 100% on R/A; tr5 02:30 BP 152 / 76; Pulse 82; Resp 18; Pulse Ox 98% on R/A; tr5 00:21 Body Mass Index 36.73 (116.12 kg, 177.80 cm) ak1 ED Course: 03/18 12:50 Warm blanket given. Assisted to bathroom. tr5 12:55 Placed in gown. Bed in low position. Call light in reach. Side rails up X 1. tr5 12:55 Inserted saline lock: 20 gauge in right antecubital area, using aseptic technique. tr5 08 00:11 Patient arrived in ED. ds1 00:21 Arm band placed on Patient placed in an exam room, on a stretcher, Patient notified of ak1 wait time. 00:23 Triage completed. ak1 00:33 Alessandro Ford MD is Attending Physician. jericho 00:36 Pablo Huerta, RN is Primary Nurse. tr5 01:05 Initial lab(s) drawn, by ia, sent to lab. First set of blood cultures drawn Flu and/or tr5 RSV swab sent to lab. 01:08 EKG done, by medical lab tech instructor. tr5 01:45 XRAY Chest (1 view) In Process Unspecified. EDMS 01:45 First set of blood cultures drawn Second set of blood cultures drawn. tr5 02:00 Awaiting lab results. tr5 03:02 Riky Barajas MD is Referral Physician. jericho 03:21 No provider procedures requiring assistance completed. IV discontinued. tr5 Administered Medications: 01:06 Drug: Tylenol 1000 mg Route: PO; tr5 01:58 Follow up: Response: No adverse reaction; Pain is decreased tr5 01:07 Drug: NS 0.9% 1000 ml Route: IV; Rate: 1 bolus; Site: right antecubital; tr5 02:36 Drug: Rocephin 1 grams Route: IV; Rate: per protocol; Site: right antecubital; tr5 Outcome: 03:02 Discharge ordered by . jericho 03:21 Discharged to home ambulatory. tr5 03:21 Condition: stable 03:21 Discharge instructions given to patient, Instructed on discharge instructions, follow up and referral plans. medication usage, Demonstrated understanding of instructions, follow-up care, medications, Prescriptions given X 3. 03:23 Patient left the ED. tr5 Signatures: Dispatcher [employer] EDAR Alessandro Ford MD MD cha Sanford, Demi ds1 Iliana Garcia RN RN ak1 Pablo Huerta, JOSÉ MIGUEL RN tr5
--- NOTE | 2019-03-19 03:05 | EDPHYS ---
Physician Documentation [facility] Name: Moraima Handy Age: 68 yrs Sex: Female : 1950 Arrival Date: 03/19/2019 Time: 00:11 Bed 18 Private MD: ARTURO Physician Alessandro Ford HPI: 03/19 00:40 This 68 yrs old Female presents to ER via Ambulatory with complaints of jericho Headache, Chills. 00:40 The patient complains of pain to the forehead, left frontal area, left side of the back jericho of head, left occipital area, left base of the skull, right frontal area, right side of the back of head, right occipital area and right base of the skull. The patient describes the headache as constant. Onset: The symptoms/episode began/occurred last night. Associated signs and symptoms: Pertinent positives: fever, nausea, Photophobia. Severity of symptoms: At its worst the pain was mild, in the emergency department the pain is unchanged. Headache History: The patient has had previous headaches and this one is similar to previous episodes, and this one is less severe than previous episodes. The symptoms are alleviated by nothing. Darkened room, quiet, remaining still, the symptoms are aggravated by lights, movement, noise. 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 - Social history:: Smoking status: Patient/guardian denies using tobacco. - Ebola Screening: : No symptoms or risks identified at this time. - Family history:: not pertinent. ROS: 00:40 Eyes: Negative for injury, pain, redness, and discharge, ENT: Negative for injury, jericho pain, and discharge, Neck: Negative for injury, pain, and swelling, Cardiovascular: Negative for chest pain, palpitations, and edema, Abdomen/GI: Negative for abdominal pain, nausea, vomiting, diarrhea, and constipation, Back: Negative for injury and pain, : Negative for injury, bleeding, discharge, and swelling, MS/Extremity: Negative for injury and deformity, Skin: Negative for injury, rash, and discoloration, Neuro: Negative for headache, weakness, numbness, tingling, and seizure, Psych: Negative for depression, anxiety, suicide ideation, homicidal ideation, and hallucinations, Allergy/Immunology: Negative for hives, rash, and allergies, Endocrine: Negative for neck swelling, polydipsia, polyuria, polyphagia, and marked weight changes, Hematologic/Lymphatic: Negative for swollen nodes, abnormal bleeding, and unusual bruising. 00:40 Constitutional: Positive for body aches, fever. 00:40 Neck: Positive for pain at rest, Negative for pain with movement, swelling. 00:40 Respiratory: Positive for cough, shortness of breath. 00:40 MS/extremity: Negative for acute changes. Exam: 00:40 Constitutional: This is a well developed, well nourished patient who is awake, alert, jericho and in no acute distress. Head/Face: Normocephalic, atraumatic. Eyes: Pupils equal round and reactive to light, extra-ocular motions intact. Lids and lashes normal. Conjunctiva and sclera are non-icteric and not injected. Cornea within normal limits. Periorbital areas with no swelling, redness, or edema. ENT: Nares patent. No nasal discharge, no septal abnormalities noted. Tympanic membranes are normal and external auditory canals are clear. Oropharynx with no redness, swelling, or masses, exudates, or evidence of obstruction, uvula midline. Mucous membranes moist. Neck: Trachea midline, no thyromegaly or masses palpated, and no cervical lymphadenopathy. Supple, full range of motion without nuchal rigidity, or vertebral point tenderness. No Meningismus. Chest/axilla: Normal chest wall appearance and motion. Nontender with no deformity. No lesions are appreciated. Cardiovascular: Regular rate and rhythm with a normal S1 and S2. No gallops, murmurs, or rubs. Normal PMI, no JVD. No pulse deficits. Respiratory: Lungs have equal breath sounds bilaterally, clear to auscultation and percussion. No rales, rhonchi or wheezes noted. No increased work of breathing, no retractions or nasal flaring. Abdomen/GI: Soft, non-tender, with normal bowel sounds. No distension or tympany. No guarding or rebound. No evidence of tenderness throughout. Back: No spinal tenderness. No costovertebral tenderness. Full range of motion. Skin: Warm, dry with normal turgor. Normal color with no rashes, no lesions, and no evidence of cellulitis. MS/ Extremity: Pulses equal, no cyanosis. Neurovascular intact. Full, normal range of motion. Neuro: Awake and alert, GCS 15, oriented to person, place, time, and situation. Cranial nerves II-XII grossly intact. Motor strength 5/5 in all extremities. Sensory grossly intact. Cerebellar exam normal. Normal gait. Psych: Awake, alert, with orientation to person, place and time. Behavior, mood, and affect are within normal limits. 00:45 Neck: ROM/movement: is normal, no acute changes, limited range of motion, is not jericho appreciated, Meningeal signs: are not present, Kernig's sign is negative, Brudzinski's sign is negative. 02:59 Musculoskeletal/extremity: Extremities: all appear grossly normal, with no appreciated jericho pain with palpation, ROM: no acute changes, intact in all extremities, Circulation is intact in all extremities. Sensation intact. Compartment Syndrome exam of affected extremity: is normal. DVT Exam: No signs of deep vein thrombosis. no pain, no swelling, no tenderness, negative Homans' sign noted on exam, no appreciated bluish discoloration, no erythema, no increased warmth. Vital Signs: 00:21 BP 153 / 65; Pulse 86; Resp 16; Temp 99(O); Pulse Ox 98% on R/A; Weight 116.12 kg (R); ak1 Height 5 ft. 10 in. (177.80 cm) (R); Pain 10/10; 01:30 BP 148 / 70; Pulse 80; Resp 16; Pulse Ox 100% on R/A; tr5 02:30 BP 152 / 76; Pulse 82; Resp 18; Pulse Ox 98% on R/A; tr5 00:21 Body Mass Index 36.73 (116.12 kg, 177.80 cm) ak1 MDM: 00:33 Patient medically screened. [facility] 00:43 Data reviewed: vital signs, nurses notes, lab test result(s), EKG, radiologic studies, [facility] plain films. 03/19 00:40 Order name: Basic Metabolic Panel; Complete Time: 01:[address] [facility] 03/19 00:40 Order name: CBC with Diff [facility] 03/19 00:40 Order name: LFT's; Complete Time: 01:[address] [facility] 03/19 00:40 Order name: Magnesium; Complete Time: 01:[address] [facility] 03/19 00:40 Order name: NT PRO-BNP; Complete Time: 01:[address] [facility] 03/19 00:40 Order name: PT-INR [facility] 03/19 00:40 Order name: Troponin (emerg Dept Use Only); Complete Time: 01:[address] [facility] 03/19 00:40 Order name: Lipase; Complete Time: 01:[address] [facility] 03/19 00:40 Order name: Urine Culture [facility] 03/19 00:40 Order name: Influenza Screen (a \T\ B) [facility] 03/19 00:40 Order name: Blood Culture Adult (2) [facility] 03/19 00:40 Order name: Procalcitonin; Complete Time: 02:[address] [facility] 03/19 01:03 Order name: Urine Dipstick--Ancillary (enter results) mw2 03/19 01:16 Order name: Urine Dipstick-Ancillary; Complete Time: 01:40 EDMN 03/19 00:40 Order name: XRAY Chest (1 view) [facility] 03/19 00:40 Order name: EKG; Complete Time: 00:[address] [facility] 03/19 00:40 Order name: Cardiac monitoring; Complete Time: 01:[address] [facility] 03/19 00:40 Order name: EKG - Nurse/Tech; Complete Time: 01:[address] [facility] 03/19 00:40 Order name: IV Saline Lock; Complete Time: 01:[address] [facility] 03/19 00:40 Order name: Labs collected and sent; Complete Time: 01:[address] [facility] 03/19 00:40 Order name: O2 Per Protocol; Complete Time: 01:[address] [facility] 03/19 00:40 Order name: O2 Sat Monitoring; Complete Time: 01:[address] [facility] 03/19 00:40 Order name: Urine Dipstick-Ancillary (obtain specimen); Complete Time: 00:[address] [facility] 03/19 01:19 Order name: CBC with Automated Diff EDMN 03/19 01:23 Order name: Protime (+INR) EDMS 03/19 01:29 Order name: Influenza Screen (A EDMS Administered Medications: 01:06 Drug: Tylenol 1000 mg Route: PO; tr5 01:58 Follow up: Response: No adverse reaction; Pain is decreased tr5 01:07 Drug: NS 0.9% 1000 ml Route: IV; Rate: 1 bolus; Site: right antecubital; tr5 02:36 Drug: Rocephin 1 grams Route: IV; Rate: per protocol; Site: right antecubital; tr5 Disposition: 03/19/19 03:02 Discharged to Home. Impression: Headache, Urinary tract infection, site not specified. - Condition is Stable. - Discharge Instructions: General Headache Without Cause, Urinary Tract Infection, Adult, Urinary Tract Infection, Adult, [id number]-[id number], General Headache Without Cause, Aczn-yx-Jpem. - Prescriptions for Fioricet with Codeine 50- 325-40-30 mg Oral capsule - take 1 capsule by ORAL route every 4 hours as needed not to exceed 6 capsules per 24hrs; 20 capsule. Augmentin 875- 125 mg Oral Tablet - take 1 tablet by ORAL route every 12 hours for 7 days; 14 tablet. Zofran 4 mg Oral Tablet - take 1 tablet by ORAL route every 12 hours As needed; 15 tablet. - Medication Reconciliation Form, Thank You Letter, Antibiotic Education, Prescription Opioid Use form. - Follow up: Private Physician; When: 2 - 3 days; Reason: Recheck today's complaints, Continuance of care, Re-evaluation by your physician. Follow up: Riky Barajas MD; When: 1 - 2 days; Reason: Recheck today's complaints, Continuance of care, Re-evaluation by your physician. - Problem is new. - Symptoms have improved. Signatures: Dispatcher [employer] [facility] Alessandro Ford MD MD cha Krenek, Amber RN RN ak1 Pablo Huerta RN RN tr5 Corrections: (The following items were deleted from the chart) 01:45 00:49 Chest Pa And Lat (2 Views)+RAD.RAD.BRZ ordered. [facility] 03:02 03:02 03/19/2019 03:02 Discharged to Home. Impression: Headache; Urinary tract jericho infection, site not specified. Condition is Stable. Forms are Medication Reconciliation Form, Thank You Letter, Antibiotic Education, Prescription Opioid Use. Follow up: Private Physician; When: 2 - 3 days; Reason: Recheck today's complaints, Continuance of care, Re-evaluation by your physician. Problem is new. Symptoms have improved. jericho 03:23 03:02 03/19/2019 03:02 Discharged to Home. Impression: Headache; Urinary tract tr5 infection, site not specified. Condition is Stable. Forms are Medication Reconciliation Form, Thank You Letter, Antibiotic Education, Prescription Opioid Use. Follow up: Private Physician; When: 2 - 3 days; Reason: Recheck today's complaints, Continuance of care, Re-evaluation by your physician. Follow up: Riky Barajas; When: 1 - 2 days; Reason: Recheck today's complaints, Continuance of care, Re-evaluation by your physician. Problem is new. Symptoms have improved. jericho
--- NOTE | 2019-03-19 07:43 | EKG ---
Test Date: 2019-03-19 Test Time: 01:07:33 Engineering Scientist: ROB MEASUREMENT RESULTS: Intervals: Rate: 86 ID: [id number] QRSD: 86 QT: 372 QTc: 445 [place]: P: 63 ID: [id number] QRS: -27 T: 52 INTERPRETIVE STATEMENTS: Normal sinus rhythm Low voltage QRS Nonspecific ST abnormality Abnormal ECG Compared to ECG 06/21/2018 18:50:04 Low QRS voltage now present ST (T wave) deviation now present Electronically Signed On 03-19-19 07:42:50 CDT by Lee Sy
--- NOTE | 2019-03-19 08:18 | RAD REPORT ---
EXAM DESCRIPTION: RAD - Chest Single View - 03/19/2019 1:18 am CLINICAL HISTORY: COUGH Chest pain. COMPARISON: Chest Pa And Lat (2 Views) dated 06/21/2018; CHEST SINGLE VIEW dated 10/24/2013; CHEST PA AND LAT 2 VIEW dated 05/26/2008 FINDINGS: Portable technique limits examination quality. The lungs are mildly emphysematous with increased medial right base lung markings suspicious for a sm all infiltrate or pneumonia. The heart is mildly enlarged in size. No displaced fractures.Hardware pl ate is present cervical spine.
== END 2019-03-19 03:23 | disposition home or self-care (01) ==
LOC: ER 00:09
DX: N39.0 Urinary tract infection, site not specified (principal); I10 Essential (primary) hypertension
CPT/HCPCS: 93005; 87040 ×2; 87088; 85025; 87086; 80048; 36415; 83735; 85610; 80076; 81003; 84484; 83690; 84145; 83880; 87804 ×2; 71045; J0696; J7030; 96374; 99284

== ENCOUNTER 2022-01-13 13:25 | Inpatient (IN) | payer OTHER ==
--- OUTSIDE RECORDS SUMMARY | 2022-01-13 15:05 | XMS REPORT | Continuity of Care Document ---
:1950 Author Organization [facility] t Address [address] [place] [address] Care Team Providers Name Role Phone ADENIKE Primary Care Physician Unavailable DAE Attending Clinician Unavailable Chapin Attending Clinician [phone] JUAN Attending Clinician Unavailable MARINO Attending Clinician Unavailable APRIL Attending Clinician Unavailable GEOVANNY Attending Clinician Unavailable MD Gabi PLATT Attending Clinician Unavailable STACIA Attending Clinician Unavailable KARINA Attending Clinician Unavailable ROMA Attending Clinician Unavailable SITTER Attending Clinician Unavailable Lab, Fam Pob I Attending Clinician Unavailable Unknown Attending Clinician Unavailable UNKNOWN Attending Clinician Unavailable ADENIKE Attending Clinician Unavailable DAE Admitting Clinician Unavailable GIULIA Admitting Clinician Unavailable MD Gabi PLATT Admitting Clinician Unavailable ADENIKE Admitting Clinician Unavailable Payers Payer Name Policy Type Policy Number Effective Date Expiration Date S ource Problems This patient has no known problems. Allergies, Adverse Reactions, Alerts Allergy Allergy Status Severity Reaction(s) Onset Inactive Treating Comm ents Source Name Type Date Date Clinician NO KNOWN Drug Active Univers [facility]ERGIE [facility] Social History Social Habit Start Date Stop Date Quantity Comments [facility] to [facility] Smoking Status Start Date Stop Date Source Unknown if ever smoked Universit y [facility] Medications This patient has no known medications. Procedures This patient has no known procedures. Encounters Start End Encounter Admission Attending Care Care Encounter Source Date/Time Date/Time Type Type Clinicians Facility Department ID 2021-11-18 2021-11-18 Outpatient DAE [facility] [id number] [place] 03:12:00 03:12:00 0422 [facility] 2021-11-18 2021-11-18 Outpatient Chapin [facility] [id number] e-[id number] 00:00:00 00:00:00 Juma [id number] 2021-08-15 2021-08-15 Outpatient JUAN, [facility] [id number] [place] 00:00:00 00:00:00 JD 010 Method i 2021-08-11 2021-08-11 Outpatient MAFFET, [facility] [id number] [place] 00:00:00 00:00:00 IVÁN [address] 2021-08-11 2021-08-11 Outpatient MAFFET, [facility] [id number] [place] 00:00:00 00:00:00 IVÁN 985 Method i 2021-06-07 2021-06-07 Outpatient FREYA CHEN [facility] [id number] [place] 00:00:00 00:00:00 051 Method i 2021-06-07 2021-06-07 Outpatient JUAN [facility] [id number] [place] 00:00:00 00:00:00 JD 812 Method i 2021-06-07 2021-06-07 Outpatient JUAN, [facility] [id number] [place] 00:00:00 00:00:00 JD 084 Method i 2021-05-18 2021-05-19 Outpatient JUAN [facility] [id number] [place] 00:00:00 00:00:00 JD 407 [facility] i 2021-05-09 2021-05-10 Inpatient GEOVANNY [facility] [id number] [place] 00:00:00 00:00:00 ERICA 259 [facility] 2021-04-11 2021-04-11 Outpatient MAFFET, [facility] [id number] [place] 00:00:00 00:00:00 IVÁN 463 [facility] i 2021-04-11 2021-04-11 Outpatient MAFFET, [facility] [id number] [place] 00:00:00 00:00:00 IVÁN 835 Method i 2021-03-22 2021-03-22 Outpatient STACIA, [facility] [id number] [place] 00:00:00 00:00:00 FRANKLIN 129 Method i 2021-02-17 2021-02-17 Outpatient KARINA, [facility] [id number] [place] 00:00:00 00:00:00 GEENA [address] 2021-02-17 2021-02-17 Outpatient STACIA, [facility] [id number] [place] 00:00:00 00:00:00 FRANKLIN [address] 2021-02-03 2021-02-03 Outpatient STACIA [facility] [id number] [place] 00:00:00 00:00:00 FRANKLIN [address] 2021-01-21 2021-01-21 Outpatient ARUNA BRANDON [facility] [id number] [place] 00:00:00 00:00:[address] 2021-01-21 2021-01-21 Outpatient KARINA [facility] [id number] [place] 00:00:00 00:00:00 GEENA [address] 2021-01-20 2021-01-20 Outpatient ARUNA BRANDON [facility] [id number] [place] 00:00:00 00:00:[address] 2021-01-10 2021-01-10 Outpatient KARINA, [facility] [id number] [place] 00:00:00 00:00:00 GEENA [address] 2020-12-30 2020-12-30 Outpatient KARINA, [facility] [id number] [place] 00:00:00 00:00:00 GEENA [address] 2020-10-25 2020-10-25 Outpatient MAFFET, [facility] [id number] [place] 00:00:00 00:00:00 IVNÁ [address] 2020-10-06 2020-10-06 Outpatient MAFFET, [facility] [id number] [place] 00:00:00 00:00:00 IVÁN [address] 2020-09-06 2020-09-06 Outpatient MAFFET, [facility] [id number] [place] 00:00:00 00:00:00 IVÁN [address] 2020-08-09 2020-08-09 Outpatient MAFFET, [facility] [id number] [place] 00:00:00 00:00:00 IVÁN [address] 2020-07-28 2020-07-28 Outpatient SITTER, [facility] [id number] [place] 00:00:00 00:00:00 JASPREET 724 Method i 2020-07-28 2020-07-28 Outpatient SITTER, [facility] [id number] [place] 00:00:00 00:00:00 JASPREET 736 Method i 2020-07-28 2020-07-28 Outpatient MAFFET, [facility] [id number] [place] 00:00:00 00:00:00 IVÁN 647 Method i 2020-07-02 2020-07-02 Laboratory Lab, Adc Fam Pob I [facility] 1.2. [id number] Univers 16:32:37 16:52:37 Only Unknown, Attending [id number] [id number] Ryan as Nadya [phone] Ar dical [address] Office [facility] 2020-07-02 2020-07-02 Outpatient R UNKNOWN, [facility] [id number] Univers 16:40:00 16:40:00 [facility] 2020-07-02 Outpatient R [facility] [id number] Univers 16:40:00 16:40:[id number] [facility] Results Test Description Test Time Test Comments Results Result Comments Source SARS-CoV-2 (COVID-19) RNA [Presence] in Respiratory sp ecimen by 2021-05-10 08:45:23 HALEY with probe detection Test Item Value Reference Range Interpretation Comme nts SARS-CoV-2 (COVID-19) RNA [Presence] in Respiratory Not detected No t-Detected specimen by HALEY with probe detection (test code = 28314-4) Whether patient is employed in a healthcare setting (test code = 13151-9) Whether the patient has symptoms related to condition of interest (test code = 00156-0) Patient was hospitalized because of this condition (test code = 43951-8) Whether the patient was admitted to intensive care unit (ICU) for condition of interest (test code = 74705-2) Whether patient resides in a congregate care setting (test code = 19820-6) B-Type Natriuretic [id number] 10:28:00 Test Item Value Reference Range Interpretation Comments B-Type Natriuretic Peptide (test 28.4 pg/mL 0.0-100.0 N code = 374489) Sed Rate ESR ([place])2017-01-19 22:57:00 Test Item Value Reference Range Interpretation Comments ESR (test code = HESR) 10 mm/Hr 0-20 N Comprehensive Metabolic [id number] 21:35:00 Test Item Value Reference Range Interpretation Comments Sodium (test code = 138 mmol/L 135-145 N NA) Potassium (test 4.2 mmol/L 3.5-5.1 N code = K) Chloride (test code 102 mmol/L 98-105 N = CL) Carbon Dioxide 23 mmol/L 22-29 N (test code = CO2) Glucose (test code 110 mg/dL 70-115 N = GLU) Blood Urea Nitrogen 22 mg/dL 8-23 N (test code = BUN) Creatinine (test 1.2 mg/dL 0.5-0.9 H code = CREAT) Calcium (test code 9.3 mg/dL 8.3-10.5 N = CA) Prot Total (test 6.4 g/dL 6.4-8.3 N code = TP) Albumin (test code 3.9 g/dL 3.5-5.2 N = ALB) A/G Ratio (test 1.6 Ratio code = AGRATIO) Globulin (test code 2.5 2.9-3.1 L = GLOB) Bili Total (test 0.3 mg/dL 0.1-0.9 N code = TBIL) Alk Phos (test code 72 U/L 35-104 N = APHOS) AST (test code = 25 U/L 1-32 N AST) ALT (test code = 35 U/L 1-33 H ALT) BUN/Creatinine 18.3 Ratio (test code = BCRATIO) Anion Gap (test 13 mmol/L 7-16 N code = AGAP) Estimated GFR (test 48 eGFR (es timated code = GFR) mL/min/1.73m2 Glomerular Kuldip tration Rate) is an est imated value,calculate d from the patient's s rose creatinine usin g the MDRD equation.I t is NOT the patient 's actual GFR. The eGFR provides a more clinicallyusefu l measure of kidn ey disease than se rum creatinine alone.This calculation xena es sex and race into account, if the informationis provided. If th e race is not provided , and the patient isAfrican-Amsuha can, multiply by 1.2 12. If sex is not prov ided, and thepatient is female, multipl y by 0.742. Results for patients <18 ye ars ofage have not been validated by th e MDRD study and loretta d be interpretedwith caution.eGFR Re sult Interpretation: eGFR > or = 60 is in t he Normal RangeeGF R < 60 may mean kidney diseaseeGFR < 1 5 may mean kidney failureRange s recommended by the National Kidney Foundation,http ://nkd ep.nih.gov Lipid [id number] 21:35:00 Test Item Value Reference Range Interpretation Comments Cholesterol (test 229 mg/dL 0-200 H code = CHOL) Triglycerides (test 125 mg/dL 9-200 N code = TRIG) HDL (test code = 39 mg/dL 50-60 L HDL) Chol/HDL (test code 5.9 Ratio 0.0-4.4 H = CHOLPHDL) LDL, Calculated 165 mg/dL 0-130 H (NOTE)RISK O F HEART (test code = LDLC) DISEASEPu blished by [place] Heart AssociationAnal yte Optim al Boderline Increased RiskC HOL <200 200-239 >240TRI G <150 150-199 >200HDL Male: >60 <40HDL Female: >60 <50 LDL < 100 130-15 9 >160 LDL NEAR OPTIMAL IS 100- 129 VLDL (test code = 25 mg/dL 5-40 N VLDL) LDL/HDL (test code = 4 LDLPHDL) CBC with [id number] 21:33:00 Test Item Value Reference Range Interpretation Comments WBC (test code = WBC) 5.4 K/cumm 4.4-10.5 N RBC (test code = RBC) 4.06 M/cumm 3.75-5.20 N Hemoglobin (test code = HGB) 12.6 gm/dL 12.2-14.8 N Hematocrit (test code = HCT) 39.1 % 36.5-44.4 N MCV (test code = MCV) 96.2 fL 80-100 N MCH (test code = MCH) 30.9 pg 27.0-32.5 N MCHC (test code = MCHC) 32.1 g/dL 32.0-37.5 N RDW (test code = RDW) 14.9 % 11.5-14.5 H Platelet Count (test code = 212 K/cumm 140-440 N PLTCT) MPV (test code = MPV) 10.3 fL Diff Method (test code = DIFFM) Auto Neutrophil (test code = NEUT) 44.1 % 36-70 N Lymphocyte (test code = LYMPH) 42.0 % 12-44 N Monocyte (test code = MONO) 7.0 % 0-11 N Eosinophil (test code = EOS) 5.5 % 0-7 N Basophil (test code = BASO) 1.4 % 0-2 N Neutro Abs (test code = ANEUT) 2.4 K/cumm 1.6-7.4 N Lymph Abs (test code = ALYMPH) 2.3 K/cumm 0.5-4.6 N [place] Abs (test code = AMONO) 0.4 K/cumm 0.0-1.2 N Eos Abs (test code = AEOS) 0.30 K/cumm 0.00-0.74 N Baso Abs (test code = ABASO) 0.1 K/cumm 0.00-0.21 N
[2022-01-13] MEDS ORDERED: ONDANSETRON 4 MG/2 ML VIAL IV PRN (15:49)
[2022-01-13] MEDS ORDERED: ACETAMINOPHEN 500 MG TAB PO PRN (18:21)
[2022-01-13 18:30] LABS: Absolute Lymphocytes (CBC) 1.8 K/uL (0.7-4.9); Hematocrit 36.7 % (36.0-45.0); Lymphocytes % 25.3 % (15.3-44.8); MCV 90.3 fL (80-100); MPV 8.1 fL (7.6-11.3); RBC Red Blood Cell Count 4.06 M/uL (3.86-4.86)
[2022-01-13] MEDS ORDERED: [UNRECOGNIZED DRUG - OTHER] IM SCH (18:30)
[2022-01-13 18:54] VITALS: BMI 35.3
[2022-01-13] MEDS ORDERED: VANCOMYCIN 2 GM in NA CHLORIDE 0.9% 500 ML IVPB ONE (19:00)
[2022-01-13 19:49] LABS: Potassium 4.5 mmol/L (3.5-5.1)
[2022-01-13] MEDS ORDERED: cloNIDine HCL 0.1 MG TAB PO PRN (21:22)
[2022-01-14 00:42] LABS: Urine Appearance Clear (Clear); Urine Bilirubin Negative (Negative); Urine Blood Trace-intact (Negative); Urine Color Yellow (Yellow); Urine Glucose Negative (Negative); Urine Protein Negative (Negative); Urine Specific Gravity >=1.030 (1.005-1.030); Urine Urobilinogen 0.2 mg/dL (0.2-1.0); Urine pH 6.5 (5.0-7.0)
[2022-01-14 00:59] LABS: Urine Microscopic Reflex ORDER UMIC
[2022-01-14 01:11] LABS: Urine Bacteria 20-50 /HPF (<20); Urine Mucus 1+ /HPF (NONE SEEN)
[2022-01-14] MEDS: METOPROLOL XL 100 MG TAB PO SCH (05:22)
[2022-01-14 06:16] LABS: Potassium 4.3 mmol/L (3.5-5.1)
[2022-01-14 07:54] LABS: Absolute Lymphocytes (CBC) 1.9 K/uL (0.7-4.9); Hematocrit 37.9 % (36.0-45.0); Lymphocytes % 32.1 % (15.3-44.8); MCV 91.7 fL (80-100); MPV 8.3 fL (7.6-11.3); RBC Red Blood Cell Count 4.13 M/uL (3.86-4.86)
[2022-01-14] MEDS: ASPIRIN 81 MG CHEWABLE TABLET PO SCH (08:17)
[2022-01-14] MEDS: VALSARTAN 40 MG TAB PO SCH (08:17)
[2022-01-14] MEDS: PANTOPRAZOLE 40MG TABLET PO SCH (08:17)
[2022-01-14] MEDS: CLOPIDOGREL 75 MG TABLET PO SCH (08:17)
[2022-01-14] MEDS: MORPHINE 2 MG/ML SYR IV PRN (11:16)
[2022-01-14] MEDS ORDERED: [UNRECOGNIZED DRUG - OTHER] IM SCH (14:00)
[2022-01-14] MEDS: VANCOMYCIN 2 GM in NA CHLORIDE 0.9% 500 ML IVPB SCH (14:16)
--- NOTE | 2022-01-14 15:21 | PN ---
Date of Progress Note: 01/14/2022 The patient both clinically and symptomatically has marked improvement since the vancomycin was start ed with localization now on the anterior portion of the foot with point tenderness probability of for pawel in the abscess that may be amendable to an I and D is more likely. Surgery consult has been obt ained. Depending on the progress and the procedure if indicated, the patient may possibly go home la te tomorrow after some vancomycin medication doses and/or Sunday. HR/MODL Voice ID: [id number] Report ID: [id number]
--- NOTE | 2022-01-14 20:12 | CON ---
Date of Consultation: 01/14/2022 Diagnosis: Right foot cellulitis and abscess. History Of Present Illness: This is the case of a 71-year-old patient, dealing with a right foot con dition, she claimed for the last several weeks. She has not been able to control that completely, th e infection comes back. She was admitted to the hospital and the infection seems to be under control , but there was an area on the foot that may develop into an abscess and a consult was made for ashlyn ha I and D. She denies any trauma, although she claimed that or she believes that was all caused initially by trauma from a bite. The patient denies any other trauma. Review of Systems: Denies any shortness of breath. Denies any chest pain. Denies any fever, although claimed a warm fe eling on the right foot with the tenderness over the dorsal aspect of the foot. Ten points otherwise unremarkable. Medications: Include Plavix. Allergies: INCLUDE ATORVASTATIN, GABAPENTIN, LEVOFLOXACIN. Social History: She does not smoke. She does drink alcohol. Family History: Noncontributory. Past Medical History: No history of diabetes. Physical Examination: General: The patient is awake, alert. HEENT: Pupils are equal and reactive. Anicteric. Neck: Supple. Chest: Bilateral breath sounds. Abdomen: Soft and depressible. Extremity: Good capillary refill. There are peripheral pulses, dorsalis pedis present. There is a cellulitis of the dorsum of the foot on the right side with an area of about 3 x 3 cm consistent with an abscess with fluctuance present. No drainage present. Good sensation in that region too. Full range of motion. Laboratory Data: Blood work shows WBC count of 6, hemoglobin of 13. Potassium is 4.3, creatinine is 0.92. Assessment: A 71-year-old patient with cellulitis and abscess on the right foot, failure of outpatie nt treatment, now receiving IV antibiotics. Very tender, she does not want to have it done with loca l anesthetic. She preferred general anesthetic. She ate today, so we are going to keep her n.p.o. a fter midnight. We are going to hold the Plavix if possible. We are going to get a consent for incis ion and drainage of right foot abscess with benefits, alternatives, and risks include, but not limite d to infection, bleeding, damage to adjacent structures, anesthesia complication, recurrence, CT, and even . She also understands this may not relieve any symptoms. She might need more than one s urgical intervention and she may require wound care. FLORA/CHRISTY Voice ID: [id number] Report ID: [id number]
[2022-01-15] MEDS: METOPROLOL XL 100 MG TAB PO SCH (06:00)
[2022-01-15] MEDS: CLOPIDOGREL 75 MG TABLET PO SCH (07:28)
[2022-01-15] MEDS: VANCOMYCIN 2 GM in NA CHLORIDE 0.9% 500 ML IVPB SCH (08:13)
--- NOTE | 2022-01-15 08:47 | EKG ---
Test Date: 2022-01-13 Test Time: 17:33:52 Front Desk Monitor: KEVIN Johnson MEASUREMENT RESULTS: Intervals: Rate: 62 NE: 146 QRSD: 90 QT: 474 QTc: 481 [place]: P: 30 NE: 146 QRS: -14 T: 16 INTERPRETIVE STATEMENTS: Normal sinus rhythm Nonspecific ST and T wave abnormality Prolonged QT Abnormal ECG Compared to ECG 03/19/2019 01:07:33 Prolonged QT interval now present ST (T wave) deviation still present Electronically Signed On 01-15-22 08:46:05 CDT by Jose Quinteros
[2022-01-15] MEDS: VALSARTAN 40 MG TAB PO SCH (09:00)
[2022-01-15] MEDS ORDERED: CLOPIDOGREL 75 MG TABLET PO SCH (09:00)
[2022-01-15] MEDS ORDERED: IRBESARTAN 75 MG PO SCH (09:00)
[2022-01-15] MEDS ORDERED: METOPROLOL XL 100 MG TAB PO SCH (09:00)
[2022-01-15] MEDS: PANTOPRAZOLE 40MG TABLET PO SCH (09:00)
[2022-01-15] MEDS: ASPIRIN 81 MG CHEWABLE TABLET PO SCH (09:00)
[2022-01-15] MEDS ORDERED: Ringers Lactate 1,000 ML IV ONE (10:35)
[2022-01-15] MEDS ORDERED: LIDOCAINE 2% MPF 5 ML VIAL ONE (11:18)
[2022-01-15] MEDS ORDERED: propofoL 200 MG/20 ML VIAL IV ONE (11:18)
[2022-01-15] MEDS ORDERED: FENTANYL CITR 100 MCG/2 ML ONE (11:18)
[2022-01-15] MEDS ORDERED: ONDANSETRON 4 MG/2 ML VIAL ONE (11:19)
[2022-01-15] MEDS ORDERED: dexAMETHasone 10 MG/ML VIAL ONE (11:19)
[2022-01-15] MEDS ORDERED: KETOROLAC 30 MG/ML INJ ONE (11:19)
--- NOTE | 2022-01-15 11:47 | P.BOP ---
Preoperative diagnosis: right dorsal foot cellulitis, abscess Postoperative diagnosis: same plus infected hematoma Primary procedure: Evacuation of infected hematoma 5x5cm with abscess drainage r foot Estimated blood loss: <10cc Specimen: cult Findings: infected hematoma with abscess Anesthesia: General Complications: None Drain(s): Other (1/" iodoform) Transferred to: Recovery Room Condition: Good
[2022-01-15] MEDS ORDERED: GLYCOPYRROLATE 0.2 MG/ML SYR ONE (11:49)
[2022-01-15] MEDS: HYDROMORPHONE HCL 1 MG/ML INJ ONE ×2 (12:04→12:09)
[2022-01-15 12:12] VITALS: O2SAT 97
[2022-01-15] MEDS: MORPHINE 2 MG/ML SYR IV PRN (12:36)
--- NOTE | 2022-01-15 20:22 | PN ---
Date of Progress Note: 01/15/2022 The patient underwent surgical procedure this morning with I and D of an infected hematoma. Postopera tively at this stage, she is somewhat groggy and discomfort; however, infectious area has been locali zed and she is cleared to be discharged by Surgery, and I agree assuming that her level of consciousn ess improves as well as need for analgesics. If in fact this happens, she could be discharged tonigh t. If not, she will remain overnight. In the a.m., we will order IVs as this has been a difficult s tick all along. Vital signs are stable. Slightly elevated blood pressure, possibly secondary to modesta n. She will follow up with Dr. Winters [facility] in a couple of days and me for her gener al medication in 1 week. HR/MODL Voice ID: [id number] Report ID: [id number]
--- NOTE | 2022-01-15 21:07 | OP ---
Date of Procedure: 01/15/2022 Surgeon: Raymon Winters MD Diagnosis: Right dorsal foot cellulitis and abscess. Postoperative Diagnosis: Right dorsal foot cellulitis and abscess plus infected hematoma. Procedure: Evacuation of infected hematoma 5 x 5 cm from the right foot with abscess drainage. Estimated Blood Loss: Less than 10 mL. Specimen: Culture. Findings: Infected hematoma with abscess on the dorsum of the foot. Anesthesia: General plus local. Complications: None. Packing: Iodoform quarter of an inch. Indication: This is the case of a 71-year-old patient dealing with a cellulitis of the right foot re gion for about 2-1/2 weeks. The patient did not improve with outpatient treatment, so she was admitt ed to the hospital, started on IV antibiotics, and a Surgical consult was obtained to drain an obviou s fluid collection on the dorsum of the foot. She denies any trauma. She thinks it was just other t [facility]. She does not recall any hit or any open wounds. The benefits, alternatives, and risks of incis ion and drainage were fully explained, which include, but not limited to, infection, bleeding, damage to adjacent structures, anesthesia complication, nonhealing wound, LA, and . She also understo od this may not relieve the symptoms. She might need more than one surgical intervention. She under stood, signed a consent. She understands also she may require wound care. Description Of Procedure: The patient was brought to the operating room and placed in supine positio n. Anesthesia was done without complication. A time-out was call. Right foot was prepped and drape d in a sterile fashion. The area was previously marked by me and the patient in the holding room. T here was an area of fluctuance about 5 cm. We make an incision right in that area, and when we did t hat, we noticed a formed clot going there with an abscess present. We proceeded with evacuation of a hematoma and abscess about 5 x 5 cm. Once all the blood was irrigated, all the clot was irrigated. We proceeded to irrigate the area, obtained hemostasis, put local anesthetic, and then packed the ar ea with an iodoform quarter of an inch. The patient tolerated the procedure well. The patient was s ent to Recovery in stable condition. FLORA/CHRISTY Voice ID: [id number] Report ID: [id number]
[2022-01-15] MEDS: SMZ./TMP. 800/160 MG TABLET PO SCH (21:44)
[2022-01-15] MEDS: ACETAMINOPHEN 500 MG TAB PO PRN (21:46)
[2022-01-16] MEDS: MORPHINE 2 MG/ML SYR IV PRN (05:05)
[2022-01-16] MEDS: METOPROLOL XL 100 MG TAB PO SCH (05:05)
[2022-01-16] MEDS: VALSARTAN 40 MG TAB PO SCH (08:58)
[2022-01-16] MEDS: PANTOPRAZOLE 40MG TABLET PO SCH (08:59)
[2022-01-16] MEDS: ACETAMINOPHEN 500 MG TAB PO PRN (08:59)
[2022-01-16] MEDS: CLOPIDOGREL 75 MG TABLET PO SCH (08:59)
[2022-01-16] MEDS: SMZ./TMP. 800/160 MG TABLET PO SCH (08:59)
[2022-01-16] MEDS: ASPIRIN 81 MG CHEWABLE TABLET PO SCH (08:59)
[2022-01-16 11:36] VITALS: BP 121/56; TEMP 98
--- NOTE | 2022-01-16 11:56 | EKG ---
Test Date: 2022-01-13 Test Time: 17:34:21 Supervisor Show Operations: KEVIN Johnson MEASUREMENT RESULTS: Intervals: Rate: 61 [place]: 152 QRSD: 92 QT: 438 QTc: 440 [place]: P: 21 [place]: 152 QRS: -15 T: 8 INTERPRETIVE STATEMENTS: Normal sinus rhythm Nonspecific ST abnormality Abnormal ECG Compared to ECG 01/13/2022 17:33:52 Prolonged QT interval no longer present ST (T wave) deviation still present Electronically Signed On 01-16-22 11:50:45 CDT by Jose Quinteros
--- NOTE | 2022-01-16 13:49 | PN ---
Date of Progress Note: 01/16/2022 Subjective: She is status post drainage of infected hematoma with abscess in the right foot. Doing well. No complaint. No nausea, vomiting. Objective: Chest: Clear. Extremities: Good capillary refill. Intact surgical site. Laboratory Data: Cultures still pending. Plan: From a surgical standpoint, she can be discharged home with intact dressings. Follow up tom or Sunday [facility] with me where we are going to teach her how to d o dressing changes. Continue antibiotics per Dr. Barajas. FLORA/CHRISTY Voice ID: [id number] Report ID: [id number]
--- NOTE | 2022-01-16 15:09 | HP ---
Cbpd of Admission: 01/13/2022 Entrance Complaint: Painful foot. History Of Present Illness: The patient presented with a painful right foot approximately 10 to 14 d ays ago of unknown etiology other than cellulitis. She was treated on outpatient basis with both IM and p.o. medications with minimal improvement, possibility of gout was also considered at that time; however, her levels were basically stable. She was tried on colchicine as well and this produced no improvement. The wound persisted and seemed to be somewhat localizing in the form of an abscess. It was felt that she should be admitted, treated with IV vancomycin and have an I and D and this was do ne. Past History: The patient has significant problems with hypertension, coronary artery disease, requi red stent a couple of months ago. Since that time, she has been relatively stable. Family History: The patient has a significant family history with a progressive dementia with her hu sband. Social History: Nonsmoker, nondrinker. Physical Examination: General: The patient is a slightly obese elderly female. Vital Signs: Stable vital signs. Head and Neck: Normocephalic. Pupils equal, reactive to light and accommodation. Fundi negative. Trachea midline. Thyroid not palpable. ENT: Negative. Chest: Clear to P and A. Cardiovascular: PMI midclavicular line. Heart sounds normal. Peripheral pulses are present and equ al bilaterally. Abdomen: No organomegaly. Bowel sounds present. Extremities: All extremities normal except for the right anterior portion of the foot which does remedios w some area of cellulitis and markedly tender area in the center, fluctuant. Rectal: Deferred. Pelvic: Deferred. Impression: Abscess cellulitis of the right foot. Plan: The patient will be admitted and placed on IV vancomycin. After a couple of doses, a surgical procedure will probably be indicated. Surgery will be consulted. HR/MODL Voice ID: [id number]
[2022-01-17] MEDS ORDERED: PRALUENT SQ SCH (09:00)
== END 2022-01-16 12:15 | disposition home health service (06) | DRG 603 ==
LOC: 2ND 15:02
PROVIDERS: ADMIT Family Medicine; ATTEND Family Medicine
PROC: 0Y9M0ZX Drainage of Right Foot, Open Approach, Diagnostic (ICD-10-PCS; principal; 2022-01-15 11:15)
DX: L03.115 Cellulitis of right lower limb (principal); L02.611 Cutaneous abscess of right foot; S90.31XA Contusion of right foot, initial encounter; I10 Essential (primary) hypertension; I25.10 Atherosclerotic heart disease of native coronary artery without angina pectoris; Z95.5 Presence of coronary angioplasty implant and graft; Z20.822 Contact with and (suspected) exposure to COVID-19
CPT/HCPCS: 36415; 80048; 81003; 81015; 85025; 87070; 87075; 87086; 87088; 87205; 93005; J1100; J1170; J2270; J2405; J2704; J3010; J3370; J7040; J7120; U0003

== ENCOUNTER 2023-02-27 17:25 | Emergency (ER) | payer OTHER ==
--- OUTSIDE RECORDS SUMMARY | 2023-02-27 17:29 | XMS REPORT | Continuity of Care Document ---
:1950 Author Organization [facility] t Address [address] [place] [address] Care Team Providers Name Role Phone LICHA JEONG Primary Care Physician Unavailable Bg SHANNON, Jd Dunn Attending Clinician Olive Silver MA Attending Clinician Unavailable César Barebr MD Attending Clinician Ivana Thomas MA Attending Clinician Unavailable DAE Attending Clinician Unavailable Juma Samson Attending Clinician [phone] Shawnee Presley Attending Clinician Unavailable Iván Kellogg MD Attending Clinician Brittany Stapleton MD Attending Clinician [phone] FREYA CHEN Attending Clinician Unavailable ERICA SMALL Attending Clinician Unavailable MD WINNIE PLATT Attending Clinician Unavailable FRANKLIN PALOMO Attending Clinician Unavailable GEENA COLLINS Attending Clinician Unavailable ARUNA BRANDON Attending Clinician Unavailable JASPREET BARBA Attending Clinician Unavailable Lab, Adc Fam Pob I Attending Clinician Unavailable Unknown, Attending Attending Clinician Unavailable UNKNOWN, ATTENDING Attending Clinician Unavailable LICHA JEONG Attending Clinician Unavailable DAE Admitting Clinician Unavailable WINNIE PLATT Admitting Clinician Unavailable MD WINNIE PLATT Admitting Clinician Unavailable LICHA JEONG Admitting Clinician Unavailable Payers Payer Name Policy Type Policy Number Effective Date Expiration Date S ource Problems Condition Condition Condition Status Onset Resolution Last Treating Co mments Source Name Details Category Date Date Treatment Clinician Date Acute Acute Disease Active [facility] diastolic diastolic 7-26 st (congestiv (congestiv 00:00: [facility] e) heart e) heart 00 l failure failure NSTEMI NSTEMI Disease Active 2020-07 [facility] (non-ST (non-ST 0-11 st elevated elevated 00:00: Hospit a myocardial myocardial 00 l infarction infarction ) ) ANDREW ANDREW Disease Active 2020-07 [facility] (obstructi (obstructi 0-11 st ve sleep ve sleep 00:00: Hospit a apnea) apnea) 00 l Obesity Obesity Disease Active 2020-07 [facility] 0-[facility] 00:00: [facility]ospita 00 l Essential Essential Disease Active 2020-07 [facility] hypertensi hypertensi 0-11 st on, benign on, benign 00:00: Ho spita 00 l Edema of Edema of Disease Active 2020-07 Metho di both lower both lower 0-11 st extremitie extremitie 00:00: [facility] s due to s due to 00 l peripheral peripheral venous venous insufficie insufficie ncy ncy 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 [facility] hyperchole hyperchole 0-11 st sterolemia sterolemia 00:00: [facility] sp[facility] 00 l 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 6-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 with 00:00: [facility] spita radiculopa radiculopa 00 l thy, thy, lumbar lumbar region region 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 00:00: Hospita region region 00 l Scoliosis Scoliosis Disease Active [facility] st 00:00: Hospita 00 l Neurogenic Neurogenic Disease Active M ethodi claudicati claudicati 6-12 st on on 00:00: Hospita 00 l Allergies, Adverse Reactions, Alerts Allergy Allergy Status Severity Reaction(s) Onset Inactive Treating Comm ents Source Name Type Date Date Clinician Rigoberto Cadei Active Method i xacin ty to 6-12 st adverse 00:00: Hospita reaction 00 l s to drug NO KNOWN Drug Active Univers ALLERGIE Class ity of S [facility] Family History Family Member Diagnosis Comments Start Date Stop Date Source Natural father [facility] Natural father Heart disease [facility] Natural mother Heart disease [facility] Social History Social Habit Start Date Stop Date Quantity Comments Source Exposure to Yes [facility] of SARS-CoV-2 (event) [facility] Gender identity [facility] Sexual orientation [facility] Alcohol intake 2023-02-21 2023-02-21 Current Islam 00:00:00 00:00:00 non-drinker of Hospital alcohol (finding) History of Social 2023-02-21 2023-02-[address] function 00:00:00 00:00:00 Hospital Tobacco use and 2022-10-12 2022-10-12 Smokeless Islam exposure 00:00:00 00:00:00 tobacco non-user Hospital Sex Ass[birth year] At [birth year] [facility] 00:00:00 00:00:00 Hospital Smoking Status Start Date Stop Date Source Unknown if ever smoked [facility] Never smoked tobacco [facility] Medications Ordered Filled Start Stop Current Ordering Indication Dosage Frequency Signature Comments Components Source Medication Medication Date Date Medication? Clinician (SIG) Name Name aspirin Yes 81mg QD Take 1 [facility] (ECOTRIN) 7-26 tablet (81 st 81 MG 09:13: mg total) Hospita enteric 26 by mouth l coated daily. tablet ZINC ORAL Yes 1{capsu QD Take 1 Met hodi 02-21 le} capsule by st 09:13: mouth Hospita 26 daily. l potassium Yes 10meq QD Take 1 Metho di chloride 02-[address] (MICRO-K) 00:00: (10 mEq Hospi ta 10 MEQ CR 00 total) by l capsule mouth daily. furosemide 2023- Yes 20mg QD Take 1 Meth niraj (LASIX) 20 -21 02- tablet (20 st mg tablet 00:00: 04:59 mg total) Ho spita 00 :00 by mouth l daily. meloxicam 2023- No [id number] 7.5mg QD Take 1 [facility] (Mobic) 7.5 3-16 -[address] mg tablet 00:00: 04:59 (7.5 mg Hosp [facility]id 00 :00 total) by l mouth daily. aspirin Yes 81mg QD Take 81 mg Meth niraj (ECOTRIN) 1-[address] 81 MG 10:08: daily. Hospita enteric 17 l coated tablet ZINC ORAL 2023-0 Yes 1{capsu QD Take 1 Met [facility] 1-11 le} capsule by st 10:08: mouth Hospita 17 daily. l aspirin 2023-0 Yes 81mg QD Take 81 mg Meth niraj (ECOTRIN) 1-[address] 81 MG 10:08: daily. Hospita enteric 17 l coated tablet ZINC ORAL 2023-0 Yes 1{capsu QD Take 1 Met [facility] 1-11 le} capsule by st 10:08: mouth Hospita 17 daily. l irbesartan 2023-0 Yes 75mg QD Take 1 Metho di (AVAPRO) 75 1-11 tablet (75 st MG tablet 00:00: mg total) [facility] 00 by mouth l nightly. metoprolol 2023-0 Yes 100mg QD Take 1 Meth niraj succinate 1-[address] XL 00:00: (100 mg Hospita (TOPROL-XL) 00 total) by l 100 mg 24 mouth hr tablet nightly. alirocumab 2023-0 Yes 150mg Q14D Inject 1 Me [facility]odi (Praluent 1-11 mL ([address] Pen) 150 00:00: total) Hospita mg/mL pen 00 under the l injector skin every subcutaneou 14 s injection (fourteen) days. irbesartan 2023-0 Yes 75mg QD Take 1 Metho di (AVAPRO) 75 1-11 tablet (75 st MG tablet 00:00: mg total) [facility] 00 by mouth l nightly. metoprolol 2023-0 Yes 100mg QD Take 1 Meth niraj succinate 1-[address] XL 00:00: (100 mg Hospita (TOPROL-XL) 00 total) by l 100 mg 24 mouth hr tablet nightly. alirocumab 2023-0 Yes 150mg Q14D Inject 1 Me [facility] (Praluent 1-11 mL ([address] Pen) 150 00:00: total) Hospita mg/mL pen 00 under the l injector skin every subcutaneou 14 s injection (fourteen) days. irbesartan 2023-0 Yes 75mg QD Take 1 Metho di (AVAPRO) 75 1-11 tablet (75 st MG tablet 00:00: mg total) [facility] 00 by mouth l nightly. metoprolol 2023-0 Yes 100mg QD Take 1 Meth niraj succinate 1-[address] XL 00:00: (100 mg Hospita (TOPROL-XL) 00 total) by l 100 mg 24 mouth hr tablet nightly. alirocumab Yes 150mg Q14D Inject 1 [facility] (Praluent 1-11 mL ([address] Pen) 150 00:00: total) Hospita mg/mL pen 00 under the l injector skin every subcutaneou 14 s injection (fourteen) days. irbesartan 2021-07 Yes TAKE 1 Metho di (AVAPRO) 75 1-[address] MG tablet 00:00: MOUTH Hospita 00 NIGHTLY l metoprolol 2021-07 Yes TAKE 1 Metho di succinate 1-[address] XL 00:00: MOUTH Hospita (TOPROL-XL) 00 EVERY DAY l 100 mg 24 AT NIGHT hr tablet clopidogreL 2021-07 Yes TAKE 1 Meth niraj (PLAVIX) 75 1-[address] mg tablet 00:00: MOUTH Hospita 00 EVERY DAY l irbesartan 2021-07 Yes TAKE 1 Metho di (AVAPRO) 75 1-[address] MG tablet 00:00: MOUTH Hospita 00 NIGHTLY l metoprolol 2021-07 Yes TAKE 1 Metho di succinate 1-[address] XL 00:00: MOUTH Hospita (TOPROL-XL) 00 EVERY DAY l 100 mg 24 AT NIGHT hr tablet clopidogreL 2021-07 Yes TAKE 1 Meth niraj (PLAVIX) 75 1-[address] mg tablet 00:00: MOUTH Hospita 00 EVERY DAY l irbesartan 2021-07 Yes TAKE 1 Metho di (AVAPRO) 75 1-[address] MG tablet 00:00: MOUTH Hospita 00 NIGHTLY l metoprolol 2021-07 Yes TAKE 1 Metho di succinate 1-[address] XL 00:00: MOUTH Hospita (TOPROL-XL) 00 EVERY DAY l 100 mg 24 AT NIGHT hr tablet clopidogreL 2021-07 Yes TAKE 1 Meth niraj (PLAVIX) 75 1-[address] mg tablet 00:00: MOUTH Hospita 00 EVERY DAY l irbesartan 2021-07- No TAKE 1 Meth niraj (AVAPRO) 75 1-30 01-[address] MG tablet 00:00: 00:00 MOUTH Hospit a 00 :00 NIGHTLY l metoprolol 2021-07- No TAKE 1 Meth niraj succinate 08-[address] XL 00:00: 00:00 MOUTH Hospita (TOPROL-XL) 00 :00 EVERY DAY l 100 mg 24 AT NIGHT hr tablet clopidogreL 2021-07- No TAKE 1 Met hodi (PLAVIX) 75 08-[address] mg tablet 00:00: 00:00 MOUTH Hospit a 00 :00 EVERY DAY l irbesartan 2021-07- No TAKE 1 Meth niraj (AVAPRO) 75 08-[address] MG tablet 00:00: 00:00 MOUTH Hospit a 00 :00 NIGHTLY l metoprolol 2021-07- No TAKE 1 Meth niraj succinate 08-[address] XL 00:00: 00:00 MOUTH Hospita (TOPROL-XL) 00 :00 EVERY DAY l 100 mg 24 AT NIGHT hr tablet clopidogreL 2021-07- No TAKE 1 Met [facility] (PLAVIX) 75 08-[address] mg tablet 00:00: 00:00 MOUTH Hospit a 00 :00 EVERY DAY l irbesartan 2021-07- No TAKE 1 Meth niraj (AVAPRO) 75 08-[address] MG tablet 00:00: 00:00 MOUTH Hospit a 00 :00 NIGHTLY l metoprolol 2021-07- No TAKE 1 Meth niraj succinate 08-[address] XL 00:00: 00:00 MOUTH Hospita (TOPROL-XL) 00 :00 EVERY DAY l 100 mg 24 AT NIGHT hr tablet clopidogreL 2021-07- No TAKE 1 [facility] (PLAVIX) 75 08-[address] mg tablet 00:00: 00:00 MOUTH Hospit a 00 :00 EVERY DAY l aspirin 2021-0 Yes 81mg QD Take 81 mg Meth niraj (ECOTRIN) 04-[address] 81 MG 10:32: daily. Hospita enteric 09 l coated tablet ZINC ORAL 2021- Yes 1{capsu QD Take 1 Met [facility] 04-25 le} capsule by st 10:32: mouth Hospita 09 daily. l aspirin 2022-0 Yes 81mg QD Take 81 mg Meth niraj (ECOTRIN) 9-[address] 81 MG 10:32: daily. Hospita enteric 09 l coated tablet ZINC ORAL Yes 1{capsu QD Take 1 Met [facility] 9-27 le} capsule by st 10:32: mouth Hospita 09 daily. l aspirin 0 Yes 81mg QD Take 81 mg Meth niraj (ECOTRIN) 9-[address] 81 MG 10:32: daily. Hospita enteric 09 l coated tablet ZINC ORAL Yes 1{capsu QD Take 1 Met [facility] 9-27 le} capsule by st 10:32: mouth Hospita 09 daily. l triamterene 2022- No 1{capsu QD Take 1 [facility] -hydrochlor 9-25 04-28 le} capsule by s t othiazid 00:00: 04:59 mouth Hospita (Dyazide) 00 :00 every l 37.5-25 mg morning. per capsule triamterene 2022- No 1{capsu QD Take 1 [facility] -hydrochlor 9-25 04-28 le} capsule by s t othiazid 00:00: 04:59 mouth Hospita (Dyazide) 00 :00 every l 37.5-25 mg morning. per capsule triamterene 2022- No 1{capsu QD Take 1 [facility] -hydrochlor 9-25 04-28 le} capsule by s t othiazid 00:00: 04:59 mouth Hospita (Dyazide) 00 :00 every l 37.5-25 mg morning. per capsule triamterene 2022- No 1{capsu QD Take 1 [facility] -hydrochlor 9-25 04-28 le} capsule by s t othiazid 00:00: 04:59 mouth Hospita (Dyazide) 00 :00 every l 37.5-25 mg morning. per capsule triamterene 2022- No 1{capsu QD Take 1 [facility] -hydrochlor 9-27 -28 le} capsule by s t othiazid 00:00: 04:59 mouth Hospita (Dyazide) 00 :00 every l 37.5-25 mg morning. per capsule triamterene 2022- No 1{capsu QD Take 1 [facility] -hydrochlor 9-27 07-26 le} capsule by s t gilazkevon 00:00: 00:00 mouth Hospita (Dyazide) 00 :00 every l 37.5-25 mg morning. per capsule metoprolol 2021- No 100mg QD Take 1 Met hodi succinate 1-24 11-[address] XL 00:00: 00:00 (100 mg Hospita (TOPROL-XL) 00 :00 total) by l 100 mg 24 mouth hr tablet nightly. metoprolol 2021- No 100mg QD Take 1 [facility] succinate 1-24 11-[address] XL 00:00: 00:00 (100 mg Hospita (TOPROL-XL) 00 :00 total) by l 100 mg 24 mouth hr tablet nightly. metoprolol 2021- No 100mg QD Take 1 [facility] succinate 1-24 11-[address] XL 00:00: 00:00 (100 mg Hospita (TOPROL-XL) 00 :00 total) by l 100 mg 24 mouth hr tablet nightly. metoprolol 2021- No 100mg QD Take 1 [facility] succinate 1-24 11-[address] XL 00:00: 00:00 (100 mg Hospita (TOPROL-XL) 00 :00 total) by l 100 mg 24 mouth hr tablet nightly. metoprolol 2021- No 100mg QD Take 1 Met [facility] succinate 1-24 11-[address] XL 00:00: 00:00 (100 mg Hospita (TOPROL-XL) 00 :00 total) by l 100 mg 24 mouth hr tablet nightly. metoprolol 2021- No 100mg QD Take 1 [facility] succinate 1-24 11-[address] XL 00:00: 00:00 (100 mg Hospita (TOPROL-XL) 00 :00 total) by l 100 mg 24 mouth hr tablet nightly. irbesartan 2021- No 75mg QD Take 75 mg [facility] (AVAPRO) 75 1-17 01-[address] MG tablet 14:09: 00:00 nightly. [facility] 43 :00 l irbesartan 2021- No 75mg QD Take 75 mg [facility] (AVAPRO) 75 08-[address] MG tablet 14:09: 00:00 nightly. [facility] 43 :00 l irbesartan 2021-0 2021- No 75mg QD Take 75 mg [facility] (AVAPRO) 75 08-[address] MG tablet 14:09: 00:00 nightly. [facility] 43 :00 l irbesartan 2021-0 2- No 75mg QD Take 75 mg [facility] (AVAPRO) 75 08-[address] MG tablet 14:09: 00:00 nightly. [facility] 43 :00 l irbesartan 2021-0 2- No 75mg QD Take 75 mg [facility] (AVAPRO) 75 08-[address] MG tablet 14:09: 00:00 nightly. [facility] 43 :00 l omeprazole 2021-0 2- No 20mg QD Take 20 mg [facility] (PriLOSEC) 08-[address] 20 MG 13:51: 00:00 daily. Hospita capsule 32 :00 l omeprazole 2021-0 2021- No 20mg QD Take 20 mg [facility] (PriLOSEC) 08-[address] 20 MG 13:51: 00:00 daily. Hospita capsule 32 :00 l omeprazole 2021-0 2021- No 20mg QD Take 20 mg [facility] (PriLOSEC) 08-[address] 20 MG 13:51: 00:00 daily. Hospita capsule 32 :00 l omeprazole 2021-0 2021- No 20mg QD Take 20 mg [facility] (PriLOSEC) 08-[address] 20 MG 13:51: 00:00 daily. Hospita capsule 32 :00 l omeprazole 2021-0 2- No 20mg QD Take 20 mg [facility] (PriLOSEC) 08-[address] 20 MG 13:51: 00:00 daily. Hospita capsule 32 :00 l albuterol 2021-0 2021- No 2{puff} Inhale 2 [facility] (ProAir 08-[address] HFA) 90 13:50: 00:00 needed Hospita mcg/actuati 55 :00 (Wheezing l on inhaler or Cough). albuterol 2021- No 2{puff} Inhale 2 [facility] (ProAir 1-17 01-[address] HFA) 90 13:50: 00:00 needed Hospita mcg/actuati 55 :00 (Wheezing l on inhaler or Cough). albuterol 2021- No 2{puff} Inhale 2 [facility] (ProAir 1-17 01-[address] HFA) 90 13:50: 00:00 needed Hospita mcg/actuati 55 :00 (Wheezing l on inhaler or Cough). albuterol 2021- No 2{puff} Inhale 2 [facility] (ProAir 1-17 01-[address] HFA) 90 13:50: 00:00 needed Hospita mcg/actuati 55 :00 (Wheezing l on inhaler or Cough). albuterol 2021- No 2{puff} Inhale 2 [facility] (ProAir 1-17 01-[address] HFA) 90 13:50: 00:00 needed Hospita mcg/actuati 55 :00 (Wheezing l on inhaler or Cough). alirocumab Yes 150mg Q14D Inject 1 Me [facility] (Praluent 1-17 mL ([address] Pen) 150 00:00: total) Hospita mg/mL pen 00 under the l injector skin every subcutaneou 14 s injection (fourteen) days. alirocumab Yes 150mg Q14D Inject 1 Me [facility] (Praluent 1-17 mL ([address] Pen) 150 00:00: total) Hospita mg/mL pen 00 under the l injector skin every subcutaneou 14 s injection (fourteen) days. alirocumab 0 Yes 150mg Q14D Inject 1 [facility] (Praluent 1-17 mL ([address] Pen) 150 00:00: total) Hospita mg/mL pen 00 under the l injector skin every subcutaneou 14 s injection (fourteen) days. alirocumab 2022- No 150mg Q14D Inject 1 M ethodi (Praluent 1-17 01-11 mL ([address] Pen) 150 00:00: 00:00 total) Hospit a mg/mL pen 00 :00 under the l injector skin every subcutaneou 14 s injection (fourteen) days. alirocumab 2021-0 3- No 150mg Q14D Inject 1 M ethodi (Praluent 1-17 01-11 mL ([address] Pen) 150 00:00: 00:00 total) Hospit a mg/mL pen 00 :00 under the l injector skin every subcutaneou 14 s injection (fourteen) days. alirocumab 2021-0 2023- No 150mg Q14D Inject 1 M ethodi (Praluent -17 01-11 mL ([address] Pen) 150 00:00: 00:00 total) Hospit a mg/mL pen 00 :00 under the l injector skin every subcutaneou 14 s injection (fourteen) days. clopidogreL 2021-0 2022- No 75mg QD Take 1 [facility] (PLAVIX) 75 1-17 11-30 tablet (75 s t mg tablet 00:00: 00:00 mg total) Ho spita 00 :00 by mouth l daily. irbesartan 2-0 2022- No 75mg QD Take 1 Meth niraj (AVAPRO) 75 1-17 11-30 tablet (75 s t MG tablet 00:00: 00:00 mg total) [facility] spita 00 :00 by mouth l nightly. clopidogreL 2021-0 2022- No 75mg QD Take 1 [facility] (PLAVIX) 75 1-17 11-30 tablet (75 s t mg tablet 00:00: 00:00 mg total) [facility] spita 00 :00 by mouth l daily. irbesartan 2-0 2022- No 75mg QD Take 1 Meth niraj (AVAPRO) 75 1-17 11-30 tablet (75 s t MG tablet 00:00: 00:00 mg total) [facility] sp[facility] 00 :00 by mouth l nightly. clopidogreL 2-0 2022- No 75mg QD Take 1 [facility] (PLAVIX) 75 1-17 11-30 tablet (75 s t mg tablet 00:00: 00:00 mg total) [facility] spita 00 :00 by mouth l daily. irbesartan 2022-0 2022- No 75mg QD Take 1 Meth niraj (AVAPRO) 75 1-17 11-30 tablet (75 s t MG tablet 00:00: 00:00 mg total) [facility] spita 00 :00 by mouth l nightly. clopidogreL 2021-0 2021- No 75mg QD Take 1 [facility] (PLAVIX) 75 1-17 11-30 tablet (75 s t mg tablet 00:00: 00:00 mg total) [facility] spita 00 :00 by mouth l daily. irbesartan 2021-0 2021- No 75mg QD Take 1 Meth niraj (AVAPRO) 75 1-17 11-30 tablet (75 s t MG tablet 00:00: 00:00 mg total) [facility] spita 00 :00 by mouth l nightly. clopidogreL 2021-2021- No 75mg QD Take 1 Met [facility] (PLAVIX) 75 -17 11-30 tablet (75 s t mg tablet 00:00: 00:00 mg total) [facility] spita 00 :00 by mouth l daily. irbesartan 2021-2021- No 75mg QD Take 1 Meth niraj (AVAPRO) 75 -17 11-30 tablet (75 s t MG tablet 00:00: 00:00 mg total) [facility] spita 00 :00 by mouth l nightly. clopidogreL 2021-2021- No 75mg QD Take 1 [facility] (PLAVIX) 75 -17 11-30 tablet (75 s t mg tablet 00:00: 00:00 mg total) [facility] spita 00 :00 by mouth l daily. irbesartan 2021-0 2021- No 75mg QD Take 1 Meth niraj (AVAPRO) 75 17 11-30 tablet (75 s t MG tablet 00:00: 00:00 mg total) [facility] spita 00 :00 by mouth l nightly. methylPREDN 2021-0 Yes [id number] 40mg [facility] ISolone [address] acetate 20:30: Hospita (DEPO-MEDRO 00 l L) injection 40 mg methylPREDN 2021-0 Yes [id number] 40mg [facility] ISolone [address] acetate 20:30: Hospita (DEPO-MEDRO 00 l L) injection 40 mg methylPREDN 2-0 Yes [id number] 40mg [facility] ISolone [address] acetate 20:30: Hospita (DEPO-MEDRO 00 l L) injection 40 mg methylPREDN 2-0 Yes [id number] 40mg [facility] ISolone 08-[address] acetate 20:30: Hospita (DEPO-MEDRO 00 l L) injection 40 mg methylPREDN 2-0 Yes [id number] 40mg [facility] ISolone 08-[address] acetate 20:30: Hospita (DEPO-MEDRO 00 l L) injection 40 mg methylPREDN 2-0 Yes [id number] 40mg [facility] ISolone 08-[address] acetate 20:30: Hospita (DEPO-MEDRO 00 l L) injection 40 mg alirocumab 2020-07- No 150mg Q14D Inject 1 M [facility]i (Praluent 2-13 -17 mL ([address] Pen) 150 00:00: 00:00 total) Hospit a mg/mL pen 00 :00 under the l injector skin every subcutaneou 14 s injection (fourteen) days. alirocumab 2020-07- No 150mg Q14D Inject 1 M [facility]i (Praluent 2-13 01-17 mL ([address] Pen) 150 00:00: 00:00 total) Hospit a mg/mL pen 00 :00 under the l injector skin every subcutaneou 14 s injection (fourteen) days. alirocumab 2020-07- No 150mg Q14D Inject 1 M [facility]i (Praluent 2-13 01-17 mL ([address] Pen) 150 00:00: 00:00 total) Hospit a mg/mL pen 00 :00 under the l injector skin every subcutaneou 14 s injection (fourteen) days. alirocumab 2020-07- No 150mg Q14D Inject 1 M [facility]i (Praluent 2-13 01-17 mL ([address] Pen) 150 00:00: 00:00 total) Hospit a mg/mL pen 00 :00 under the l injector skin every subcutaneou 14 s injection (fourteen) days. alirocumab 2020-07- No 150mg Q14D Inject 1 M [facility]i (Praluent 2-13 01-17 mL ([address] Pen) 150 00:00: 00:00 total) Hospit a mg/mL pen 00 :00 under the l injector skin every subcutaneou 14 s injection (fourteen) days. bempedoic 2020-07- No 10mg QD Take 10 mg M ethodi acid-ezetim 09-[address] [place] 00:00: 00:00 daily. Hospita (Nexlizet) 00 :00 l 180-10 mg tablet bempedoic 2020-07- No 10mg QD Take 10 mg M ethodi acid-ezetim 09-[address] [place] 00:00: 00:00 daily. Hospita (Nexlizet) 00 :00 l 180-10 mg tablet bempedoic 2020-07- No 10mg QD Take 10 mg M ethodi acid-ezetim 09-[address] [place] 00:00: 00:00 daily. Hospita (Nexlizet) 00 :00 l 180-10 mg tablet bempedoic 2020-07- No 10mg QD Take 10 mg M ethodi acid-ezetim 09-[address] [place] 00:00: 00:00 daily. Hospita (Nexlizet) 00 :00 l 180-10 mg tablet bempedoic 2020-07- No 10mg QD Take 10 mg M ethodi acid-ezetim 09-[address] [place] 00:00: 00:00 daily. Hospita (Nexlizet) 00 :00 l 180-10 mg tablet clopidogreL 2020-07- No 75mg QD Take 1 [facility] (PLAVIX) 75 0-20 01-17 tablet (75 s t mg tablet 00:00: 00:00 mg total) [facility] spita 00 :00 by mouth l daily. clopidogreL 2020-07- No 75mg QD Take 1 [facility] (PLAVIX) 75 0-20 01-17 tablet (75 s t mg tablet 00:00: 00:00 mg total) [facility] spita 00 :00 by mouth l daily. clopidogreL 2020-07- No 75mg QD Take 1 [facility] (PLAVIX) 75 0-20 01-17 tablet (75 s t mg tablet 00:00: 00:00 mg total) [facility] spita 00 :00 by mouth l daily. clopidogreL 2020-07- No 75mg QD Take 1 [facility] (PLAVIX) 75 0-20 01-17 tablet (75 s t mg tablet 00:00: 00:00 mg total) [facility] spita 00 :00 by mouth l daily. clopidogreL 2020-07 No 75mg QD Take 1 [facility] (PLAVIX) 75 0-20 -17 tablet (75 s t mg tablet 00:00: 00:00 mg total) [facility] spita 00 :00 by mouth l daily. metoprolol 2020-07- No 100mg QD Take 1 [facility] succinate 0- tablet st XL (Toprol 00:00: 05:59 (100 mg [facility] XL) 100 mg 00 :00 total) by l 24 hr mouth tablet daily for 90 days. metoprolol 2020-07 No 100mg QD Take 1 [facility] succinate 008-[address] XL (Toprol 00:00: 05:59 (100 mg [facility] XL) 100 mg 00 :00 total) by l 24 hr mouth tablet daily for 90 days. metoprolol 2020-07 No 100mg QD Take 1 [facility] succinate 08-[address] XL (Toprol 00:00: 05:59 (100 mg [facility] XL) 100 mg 00 :00 total) by l 24 hr mouth tablet daily for 90 days. terbinafine 2021- No 250mg QD Take 250 [facility] HCL 9-28 01-[address] (LamiSIL) 00:00: 00:00 mouth Hospit a 250 mg 00 :00 daily. l tablet terbinafine 2021- No 250mg QD Take 250 [facility] HCL 9-28 01-[address] (LamiSIL) 00:00: 00:00 mouth Hospit a 250 mg 00 :00 daily. l tablet terbinafine 2021- No 250mg QD Take 250 [facility] HCL 9-28 01-[address] (LamiSIL) 00:00: 00:00 mouth Hospit a 250 mg 00 :00 daily. l tablet terbinafine 2021- No 250mg QD Take 250 [facility] HCL 9-28 01-[address] (LamiSIL) 00:00: 00:00 mouth Hospit a 250 mg 00 :00 daily. l tablet terbinafine 2021- No 250mg QD Take 250 [facility] HCL 9-28 01-[address] (LamiSIL) 00:00: 00:00 mouth Hospit a 250 mg 00 :00 daily. l tablet DULoxetine 2021- No 20mg QD Take 1 Meth n[facility]aj (Cymbalta) 03-[address] 20 MG 00:00: 00:00 (20 mg Hospita capsule 00 :00 total) by l mouth daily. DULoxetine 2021- No 20mg QD Take 1 Meth n[facility] (Cymbalta) 03-[address] 20 MG 00:00: 00:00 (20 mg Hospita capsule 00 :00 total) by l mouth daily. DULoxetine No 20mg QD Take 1 [facility] n[facility] (Cymbalta) 03-[address] 20 MG 00:00: 00:00 (20 mg Hospita capsule 00 :00 total) by l mouth daily. DULoxetine No 20mg QD Take 1 Meth n[facility] (Cymbalta) 03-[address] 20 MG 00:00: 00:00 (20 mg Hospita capsule 00 :00 total) by l mouth daily. DULoxetine No 20mg QD Take 1 Meth n[facility] (Cymbalta) 03-[address] 20 MG 00:00: 00:00 (20 mg Hospita capsule 00 :00 total) by l mouth daily. irbesartan 2019-07 No 75mg QD Take 75 mg [facility] (AVAPRO) 75 08-[address] MG tablet 00:00: 00:00 daily. Hospi ta 00 :00 l irbesartan 2019-07- No 75mg QD Take 75 mg [facility] (AVAPRO) 75 08-[address] MG tablet 00:00: 00:00 daily. Hospi ta 00 :00 l irbesartan 2020-1 2022- No 75mg QD Take 75 mg [facility] (AVAPRO) 75 08-[address] MG tablet 00:00: 00:00 daily. Hospi ta 00 :00 l irbesartan 2019-07- No 75mg QD Take 75 mg [facility] (AVAPRO) 75 08-[address] MG tablet 00:00: 00:00 daily. Hospi ta 00 :00 l irbesartan 2019-07- No 75mg QD Take 75 mg [facility] (AVAPRO) 75 08-[address] MG tablet 00:00: 00:00 daily. Hospi ta 00 :00 l albuterol albuterol No albuterol [place] sulfate HFA sulfate HFA sulfate [facility] 90 90 HFA 90 ty mcg/actuati mcg/actuati mcg/actuat [facility] on aerosol on aerosol ion l inhaler inhaler aerosol [facility] INHALE 2 INHALE 2 inhaler PUFFS BY PUFFS BY INHALE 2 MOUTH EVERY MOUTH EVERY PUFFS BY 4 TO 6 4 TO 6 MOUTH HOURS HOURS EVERY 4 TO NEEDED NEEDED 6 HOURS NEEDED atorvastati atorvastati No atorvastat [place] n 40 mg n 40 mg in 40 mg Commu ni tablet TAKE tablet TAKE tablet ty 1 TABLET BY 1 TABLET BY TAKE 1 Hospita MOUTH EVERY MOUTH EVERY TABLET BY l DAY DAY MOUTH Clinics EVERY DAY cephalexin cephalexin No cephalexin [place] 500 mg 500 mg 500 mg Communi capsule capsule capsule ty TAKE 1 TAKE 1 TAKE 1 Hospita CAPSULE BY CAPSULE BY CAPSULE BY l MOUTH THREE MOUTH THREE MOUTH Clinics TIMES DAILY TIMES DAILY THREE TIMES DAILY clopidogrel clopidogrel No clopidogre [place] 75 mg 75 mg l 75 mg Communi tablet TAKE tablet TAKE tablet ty 1 TABLET BY 1 TABLET BY TAKE 1 Hospita MOUTH EVERY MOUTH EVERY TABLET BY l DAY DAY MOUTH Clinics EVERY DAY duloxetine duloxetine No duloxetine [place] 20 mg 20 mg 20 mg [facility] capsule,del capsule,del capsule,de ty ayed ayed layed Hospita release release release l TAKE 1 TAKE 1 TAKE 1 Clinics CAPSULE BY CAPSULE BY CAPSULE BY MOUTH EVERY MOUTH EVERY MOUTH DAY DAY EVERY DAY gabapentin gabapentin No gabapentin [place] 400 mg 400 mg 400 mg Communi capsule capsule capsule ty TAKE 1 TAKE 1 TAKE 1 Hospita CAPSULE CAPSULE CAPSULE l (400 MG (400 MG (400 MG Clinic s TOTAL) BY TOTAL) BY TOTAL) BY MOUTH 3 MOUTH 3 MOUTH 3 (THREE) (THREE) (THREE) TIMES A TIMES A TIMES A DAY. DAY. DAY. irbesartan irbesartan No irbesartan [place] 75 mg 75 mg 75 mg Communi tablet TAKE tablet TAKE tablet ty 1 TABLET BY 1 TABLET BY TAKE 1 Hospita MOUTH MOUTH TABLET BY l NIGHTLY NIGHTLY MOUTH Clinics NIGHTLY ketoconazol ketoconazol No ketoconazo [place] e 2 % e 2 % le 2 % Communi topical topical topical ty cream APPLY cream APPLY cream Hospita TO AFFECTED TO AFFECTED APPLY TO l AREA TWICE AREA TWICE AFFECTED Clinics A DAY FOR 2 A DAY FOR 2 AREA TWICE WEEKS WEEKS A DAY FOR NEEDED FOR NEEDED FOR 2 WEEKS FLARE FLARE NEEDED FOR FLARE methylpredn methylpredn No methylpred [place] isolone 4 isolone 4 nisolone 4 Communi mg tablets mg tablets mg tablets ty in a dose in a dose in a dose Hospita pack TAKE 6 pack TAKE 6 pack TAKE l TABLETS ON TABLETS ON 6 TABLETS Clinics DAY 1 DAY 1 ON DAY 1 DIRECTED ON DIRECTED ON PACKAGE AND PACKAGE AND DIRECTED DECREASE BY DECREASE BY ON PACKAGE 1 TAB EACH 1 TAB EACH AND DAY FOR A DAY FOR A DECREASE TOTAL OF 6 TOTAL OF 6 BY 1 TAB DAYS DAYS EACH DAY FOR A TOTAL OF 6 DAYS metoprolol metoprolol No metoprolol [place] succinate succinate succinate Communi ER 100 mg ER 100 mg ER 100 mg ty tablet,exte tablet,exte tablet,ext Hospita nded nded ended l release 24 release 24 release 24 Clinics hr TAKE 1 hr TAKE 1 hr TAKE 1 TABLET BY TABLET BY TABLET BY MOUTH EVERY MOUTH EVERY MOUTH DAY AT DAY AT EVERY DAY NIGHT NIGHT AT NIGHT mupirocin 2 mupirocin 2 No mupirocin [place] % topical % topical 2 % Commu ni ointment ointment topical ty APPLY A APPLY A ointment Hospi ta THIN LAYER THIN LAYER APPLY A l TO LEFT TO LEFT THIN LAYER Cli nics NOSTRIL TWO NOSTRIL TWO TO LEFT TIMES DAILY TIMES DAILY NOSTRIL TWO TIMES DAILY omeprazole omeprazole No omeprazole [place] 40 mg 40 mg 40 mg Communi capsule,del capsule,del capsule,de ty ayed ayed layed Hospita release release release l TAKE 1 TAKE 1 TAKE 1 Clinics CAPSULE BY CAPSULE BY CAPSULE BY MOUTH EVERY MOUTH EVERY MOUTH DAY DAY EVERY DAY Praluent Praluent No Praluent Swe tera Pen 150 Pen 150 Pen 150 Commun i mg/mL mg/mL mg/mL ty subcutaneou subcutaneou subcutaneo [facility] pen s pen us pen l injector injector injector Cli nics INJECT 1 ML INJECT 1 ML INJECT 1 (150 MG (150 MG ML (150 MG TOTAL) TOTAL) TOTAL) UNDER THE UNDER THE UNDER THE SKIN EVERY SKIN EVERY SKIN EVERY 14 14 14 (FOURTEEN) (FOURTEEN) (FOURTEEN) DAYS. DAYS. DAYS. prasugrel prasugrel No prasugrel [place] 10 mg 10 mg 10 mg Communi tablet TAKE tablet TAKE tablet ty 1 TABLET BY 1 TABLET BY TAKE 1 Hospita MOUTH EVERY MOUTH EVERY TABLET BY l DAY DAY MOUTH Clinics EVERY DAY sulfamethox sulfamethox No sulfametho [place] azole 800 azole 800 xazole 800 Communi mg-trimetho mg-trimetho mg-trimeth ty prim 160 mg prim 160 mg oprim 160 Hospita tablet TAKE tablet TAKE mg tablet l 1 TABLET BY 1 TABLET BY TAKE 1 Clinics MOUTH TWICE MOUTH TWICE TABLET BY A DAY A DAY MOUTH TWICE A DAY tramadol 50 tramadol 50 No tramadol [place] mg tablet mg tablet 50 mg Comm uni TAKE 1 TAKE 1 tablet ty TABLET BY TABLET BY TAKE 1 Hos [facility] MOUTH EVERY MOUTH EVERY TABLET BY l 6 HOURS 6 HOURS MOUTH Cl inics NEEDED FOR NEEDED FOR EVERY 6 MODERATE MODERATE HOURS PAIN FOR UP PAIN FOR UP NEEDED FOR TO 10 DAYS TO 10 DAYS MODERATE .ACUTE .ACUTE PAIN FOR PAIN. PAIN. UP TO 10 DAYS .ACUTE PAIN. albuterol albuterol No albuterol [place] sulfate HFA sulfate HFA sulfate Communi 90 90 HFA 90 ty mcg/actuati mcg/actuati mcg/actuat Hospita on aerosol on aerosol ion l inhaler inhaler aerosol Clinic s INHALE 2 INHALE 2 inhaler PUFFS BY PUFFS BY INHALE 2 MOUTH EVERY MOUTH EVERY PUFFS BY 4 TO 6 4 TO 6 MOUTH HOURS HOURS EVERY 4 TO NEEDED NEEDED 6 HOURS NEEDED atorvastati atorvastati No atorvastat [place] n 40 mg n 40 mg in 40 mg Commu ni tablet TAKE tablet TAKE tablet ty 1 TABLET BY 1 TABLET BY TAKE 1 Hospita MOUTH EVERY MOUTH EVERY TABLET BY l DAY DAY MOUTH Clinics EVERY DAY cefdinir cefdinir No cefdinir Swe tera 300 mg 300 mg 300 mg Communi capsule capsule capsule ty TAKE 2 TAKE 2 TAKE 2 Hospita CAPSULES BY CAPSULES BY CAPSULES l MOUTH EVERY MOUTH EVERY BY MOUTH Clinics DAY DAY EVERY DAY cephalexin cephalexin No cephalexin [place] 500 mg 500 mg 500 mg Communi capsule capsule capsule ty TAKE 1 TAKE 1 TAKE 1 Hospita CAPSULE BY CAPSULE BY CAPSULE BY l MOUTH THREE MOUTH THREE MOUTH Clinics TIMES DAILY TIMES DAILY THREE TIMES DAILY clopidogrel clopidogrel No clopidogre [place] 75 mg 75 mg l 75 mg Communi tablet TAKE tablet TAKE tablet ty 1 TABLET BY 1 TABLET BY TAKE 1 Hospita MOUTH EVERY MOUTH EVERY TABLET BY l DAY DAY MOUTH Clinics EVERY DAY colchicine colchicine No colchicine [place] 0.6 mg 0.6 mg 0.6 mg Communi tablet TAKE tablet TAKE tablet ty 1 TABLET BY 1 TABLET BY TAKE 1 Hospita MOUTH TWICE MOUTH TWICE TABLET BY l DAILY DAILY MOUTH Clinics TWICE DAILY duloxetine duloxetine No duloxetine [place] 20 mg 20 mg 20 mg Communi capsule,del capsule,del capsule,de ty ayed ayed layed Hospita release release release l TAKE 1 TAKE 1 TAKE 1 Clinics CAPSULE BY CAPSULE BY CAPSULE BY MOUTH EVERY MOUTH EVERY MOUTH DAY DAY EVERY DAY gabapentin gabapentin No gabapentin [place] 400 mg 400 mg 400 mg Communi capsule capsule capsule ty TAKE 1 TAKE 1 TAKE 1 Hospita CAPSULE CAPSULE CAPSULE l (400 MG (400 MG (400 MG Clinic s TOTAL) BY TOTAL) BY TOTAL) BY MOUTH 3 MOUTH 3 MOUTH 3 (THREE) (THREE) (THREE) TIMES A TIMES A TIMES A DAY. DAY. DAY. irbesartan irbesartan No irbesartan [place] 75 mg 75 mg 75 mg Communi tablet TAKE tablet TAKE tablet ty 1 TABLET BY 1 TABLET BY TAKE 1 Hospita MOUTH MOUTH TABLET BY l NIGHTLY NIGHTLY MOUTH Clinics NIGHTLY ketoconazol ketoconazol No ketoconazo [place] e 2 % e 2 % le 2 % Communi topical topical topical ty cream APPLY cream APPLY cream Hospita TO AFFECTED TO AFFECTED APPLY TO l AREA TWICE AREA TWICE AFFECTED Clinics A DAY FOR 2 A DAY FOR 2 AREA TWICE WEEKS WEEKS A DAY FOR NEEDED FOR NEEDED FOR 2 WEEKS FLARE FLARE NEEDED FOR FLARE Lidocaine Lidocaine No Lidocaine [place] Viscous 2 % Viscous 2 % Viscous 2 Communi mucosal mucosal % mucosal ty solution solution solution [facility] APPLY 15ML APPLY 15ML APPLY 15ML l TOPICALLY TOPICALLY TOPICALLY Clinics TO WOUND 5 TO WOUND 5 TO WOUND 5 MINUTES MINUTES MINUTES PRIOR TO PRIOR TO PRIOR TO WOUND CARE WOUND CARE WOUND CARE DAILY DAILY DAILY methylpredn methylpredn No methylpred [place] isolone 4 isolone 4 nisolone 4 Communi mg tablets mg tablets mg tablets ty in a dose in a dose in a dose Hospita pack TAKE 6 pack TAKE 6 pack TAKE l TABLETS ON TABLETS ON 6 TABLETS Clinics DAY 1 DAY 1 ON DAY 1 DIRECTED ON DIRECTED ON PACKAGE AND PACKAGE AND DIRECTED DECREASE BY DECREASE BY ON PACKAGE 1 TAB EACH 1 TAB EACH AND DAY FOR A DAY FOR A DECREASE TOTAL OF 6 TOTAL OF 6 BY 1 TAB DAYS DAYS EACH DAY FOR A TOTAL OF 6 DAYS metoprolol metoprolol No metoprolol [place] succinate succinate succinate Communi ER 100 mg ER 100 mg ER 100 mg ty tablet,exte tablet,exte tablet,ext Hospita nded nded ended l release 24 release 24 release 24 Clinics hr TAKE 1 hr TAKE 1 hr TAKE 1 TABLET BY TABLET BY TABLET BY MOUTH EVERY MOUTH EVERY MOUTH DAY AT DAY AT EVERY DAY NIGHT NIGHT AT NIGHT mupirocin 2 mupirocin 2 No mupirocin [place] % topical % topical 2 % Commu ni ointment ointment topical ty APPLY A APPLY A ointment Hospi ta THIN LAYER THIN LAYER APPLY A l TO LEFT TO LEFT THIN LAYER Cli nics NOSTRIL TWO NOSTRIL TWO TO LEFT TIMES DAILY TIMES DAILY NOSTRIL TWO TIMES DAILY omeprazole omeprazole No omeprazole [place] 40 mg 40 mg 40 mg Communi capsule,del capsule,del capsule,de ty ayed ayed layed Hospita release release release l TAKE 1 TAKE 1 TAKE 1 Clinics CAPSULE BY CAPSULE BY CAPSULE BY MOUTH EVERY MOUTH EVERY MOUTH DAY DAY EVERY DAY Praluent Praluent No Praluent Swe tera Pen 150 Pen 150 Pen 150 Commun i mg/mL mg/mL mg/mL ty subcutaneou subcutaneou subcutaneo Hospita s pen s pen us pen l injector injector injector Cli nics INJECT 1 ML INJECT 1 ML INJECT 1 (150 MG (150 MG ML (150 MG TOTAL) TOTAL) TOTAL) UNDER THE UNDER THE UNDER THE SKIN EVERY SKIN EVERY SKIN EVERY 14 14 14 (FOURTEEN) (FOURTEEN) (FOURTEEN) DAYS. DAYS. DAYS. prasugrel prasugrel No prasugrel [place] 10 mg 10 mg 10 mg Communi tablet TAKE tablet TAKE tablet ty 1 TABLET BY 1 TABLET BY TAKE 1 Hospita MOUTH EVERY MOUTH EVERY TABLET BY l DAY DAY MOUTH Clinics EVERY DAY QuickVue QuickVue No QuickVue Swe tera At-Home At-Home At-Home Commun i COVID-19 COVID-19 COVID-19 ty Test kit Test kit Test kit [facility] REFER TO REFER TO REFER TO l MANUFACTURE MANUFACTURE MANUFACTUR Clinics R PACKAGING R PACKAGING ER FOR FOR PACKAGING INSTRUCTION INSTRUCTION FOR S S INSTRUCTIO NS sulfamethox sulfamethox No sulfametho [place] azole 800 azole 800 xazole 800 Communi mg-trimetho mg-trimetho mg-trimeth ty prim 160 mg prim 160 mg oprim 160 Hospita tablet TAKE tablet TAKE mg tablet l 1 TABLET BY 1 TABLET BY TAKE 1 Clinics MOUTH TWICE MOUTH TWICE TABLET BY A DAY A DAY MOUTH TWICE A DAY tramadol 50 tramadol 50 No tramadol [place] mg tablet mg tablet 50 mg Comm uni TAKE 1 TAKE 1 tablet ty TABLET BY TABLET BY TAKE 1 [facility] MOUTH EVERY MOUTH EVERY TABLET BY l 6 HOURS 6 HOURS MOUTH Cl inics NEEDED FOR NEEDED FOR EVERY 6 MODERATE MODERATE HOURS PAIN FOR UP PAIN FOR UP NEEDED FOR TO 10 DAYS TO 10 DAYS MODERATE .ACUTE .ACUTE PAIN FOR PAIN. PAIN. UP TO 10 DAYS .ACUTE PAIN. Vital Signs Vital Name Observation Time Observation Value Comments Source Systolic blood 2023-02-21 14:10:00 168 mm[Hg] Method [facility] pressure Diastolic blood 2023-02-21 14:10:00 75 mm[Hg] [facility] pressure Heart rate 2023-02-21 14:10:00 60 /min [facility] Body temperature 2023-02-21 14:10:00 34.78 Anita [facility] Body height 2023-02-21 14:10:00 177.8 cm [facility] Body weight 2023-02-21 14:10:00 106.142 kg [facility] BMI 2023-02-21 14:10:00 33.58 kg/m2 [facility] Oxygen saturation in 2023-02-21 14:10:00 99 /min [facility] Arterial blood by Pulse oximetry Systolic blood 2022-08-09 16:01:00 148 mm[Hg] Method [facility] pressure Diastolic blood 2022-08-09 16:01:00 81 mm[Hg] [facility] pressure Heart rate 2022-08-09 16:01:00 60 /min [facility] Body temperature 2022-08-09 16:01:00 36.17 Anita [facility] Body height 2022-08-09 16:01:00 177.8 cm [facility] Body weight 2022-08-09 16:01:00 110.678 kg [facility] BMI 2022-08-09 16:01:00 35.01 kg/m2 [facility] Systolic blood 2022-04-25 15:32:00 121 mm[Hg] [facility] pressure Diastolic blood 2022-04-25 15:32:00 76 mm[Hg] [facility] pressure Heart rate 2022-04-25 15:32:00 67 /min [facility] Body temperature 2022-04-25 15:32:00 36.33 Anita [facility] Body height 2022-04-25 15:32:00 177.8 cm [facility] Body weight 2022-04-25 15:32:00 112.038 kg [facility] BMI 2022-04-25 15:32:00 35.44 kg/m2 [facility] Oxygen saturation in 2022-04-25 15:32:00 97 /min [facility] Arterial blood by Pulse oximetry Procedures Procedure Date / Time Performing Clinician Source Performed ECG 12-LEAD 2023-02-21 00:00:00 [facility] COMPREHENSIVE METABOLIC 2023-02-19 20:15:36 Jd Pederson [facility] PANEL CBC HEMOGRAM 2023-02-19 17:31:00 [facility] LIPID PANEL 2023-02-19 17:31:00 [facility] THYROID STIMULATING 2023-02-19 00:00:00 [facility] HORMONE XR SHOULDERS BILATERAL 2022-10-12 19:03:56 César Barber [facility] ECG 12-LEAD 2022-08-09 00:00:00 [facility] GA ARTHROCENTESIS 2021-08-11 20:10:00 Iván Kellogg [facility] ASPIR&/INJ MAJOR JT/BURSA W/O US XR KNEE 4+ VW BILATERAL 2021-08-11 20:00:53 Iván Kellogg [facility] Plan of Care Planned Activity Planned Date Details Comments Source Future Scheduled 2023-02-26 Screening for [facility] Test 12:32:28 malignant neoplasm of colon (procedure) [code = 541476960] Future Scheduled 2023-02-26 Screening for [facility] Test 12:32:28 malignant neoplasm of colon (procedure) [code = 699893818] Future Scheduled 2023-02-26 Screening for [facility] Test 12:32:28 malignant neoplasm of colon (procedure) [code = 174042382] Future Scheduled 2023-02-26 65+ PNEUMOCOCCAL [facility] Test 12:32:28 VACCINE (1 - PCV) [code = 65+ PNEUMOCOCCAL VACCINE (1 - PCV)] Future Scheduled 2023-02-26 Hepatitis C screening [facility] Test 12:32:28 (procedure) [code = 299061146] Future Scheduled 2023-02-26 BREAST CANCER [facility] Test 12:32:28 SCREENING [code = BREAST CANCER SCREENING] Future Scheduled 2023-02-26 Screening for [facility] Test 12:32:28 malignant neoplasm of colon (procedure) [code = [id number]] Future Scheduled 2023-02-26 Screening for [facility] Test 12:32:28 malignant neoplasm of colon (procedure) [code = 420280649] Future Scheduled 2023-02-26 SHINGLES VACCINES (1 Met [facility] Test 12:32:28 of 2) [code = SHINGLES VACCINES (1 of 2)] Future Scheduled 2023-02-26 COVID-19 VACCINE (3 - [facility] Test 12:32:28 Moderna series) [code = COVID-19 VACCINE (3 - Moderna series)] Future Scheduled 2023-02-26 INFLUENZA VACCINE Method [facility] Test 12:32:28 [code = INFLUENZA VACCINE] Future Scheduled 2022-08-14 65+ PNEUMOCOCCAL [facility] Test 15:01:39 VACCINE (1 - PCV) [code = 65+ PNEUMOCOCCAL VACCINE (1 - PCV)] Future Scheduled 2022-08-14 Hepatitis C screening [facility] Test 15:01:39 (procedure) [code = [id number]] Future Scheduled 2022-08-14 BREAST CANCER [facility] Test 15:01:39 SCREENING [code = BREAST CANCER SCREENING] Future Scheduled 2022-08-14 COLONOSCOPY SCREENING [facility] Test 15:01:39 [code = COLONOSCOPY SCREENING] Future Scheduled 2022-08-14 SHINGLES VACCINES (1 Met [facility] Test 15:01:39 of 2) [code = SHINGLES VACCINES (1 of 2)] Future Scheduled 2022-08-14 COVID-19 VACCINE (3 - Me [facility] Test 15:01:39 Booster for Moderna series) [code = COVID-19 VACCINE (3 - Booster for Moderna series)] Future Scheduled 2022-08-14 INFLUENZA VACCINE Method [facility] Test 15:01:39 [code = INFLUENZA VACCINE] Future Scheduled 2022-08-11 65+ [facility]OCCAL [facility] Test 08:35:41 VACCINE (1 - PCV) [code = 65+ PNEUMOCOCCAL VACCINE (1 - PCV)] Future Scheduled 2022-08-11 Hepatitis C screening [facility] Test 08:35:41 (procedure) [code = [id number]] Future Scheduled 2022-08-11 BREAST CANCER [facility] Test 08:35:41 SCREENING [code = BREAST CANCER SCREENING] Future Scheduled 2022-08-11 COLONOSCOPY SCREENING [facility] Test 08:35:41 [code = COLONOSCOPY SCREENING] Future Scheduled 2022-08-11 SHINGLES VACCINES (1 Met [facility] Test 08:35:41 of 2) [code = SHINGLES VACCINES (1 of 2)] Future Scheduled 2022-08-11 COVID-19 VACCINE (3 - Me [facility] Test 08:35:41 Booster for Moderna series) [code = COVID-19 VACCINE (3 - Booster for Moderna series)] Future Scheduled 2022-08-11 INFLUENZA VACCINE Method [facility] Test 08:35:41 [code = INFLUENZA VACCINE] Future Scheduled 2022-08-02 65+ PNEUMOCOCCAL [facility] Test 14:40:56 VACCINE (1 - PCV) [code = 65+ PNEUMOCOCCAL VACCINE (1 - PCV)] Future Scheduled 2022-08-02 Hepatitis C screening [facility] Test 14:40:56 (procedure) [code = [id number]] Future Scheduled 2022-08-02 BREAST CANCER [facility] Test 14:40:56 SCREENING [code = BREAST CANCER SCREENING] Future Scheduled 2022-08-02 COLONOSCOPY SCREENING Me [facility] Test 14:40:56 [code = COLONOSCOPY SCREENING] Future Scheduled 2022-08-02 SHINGLES VACCINES (1 Met [facility] Test 14:40:56 of 2) [code = SHINGLES VACCINES (1 of 2)] Future Scheduled 2022-08-02 COVID-19 VACCINE (3 - Me [facility] Test 14:40:56 Booster for Moderna series) [code = COVID-19 VACCINE (3 - Booster for Moderna series)] Future Scheduled 2022-08-02 INFLUENZA VACCINE [facility] Test 14:40:56 [code = INFLUENZA VACCINE] Future Scheduled 2022-08-02 65+ [facility]UMOCOCCAL [facility] Test 14:40:56 VACCINE (1 - PCV) [code = 65+ PNEUMOCOCCAL VACCINE (1 - PCV)] Future Scheduled 2022-08-02 Hepatitis C screening [facility] Test 14:40:56 (procedure) [code = [id number]] Future Scheduled 2022-08-02 BREAST CANCER [facility] Test 14:40:56 SCREENING [code = BREAST CANCER SCREENING] Future Scheduled 2022-08-02 COLONOSCOPY SCREENING [facility] Test 14:40:56 [code = COLONOSCOPY SCREENING] Future Scheduled 2022-08-02 SHINGLES VACCINES (1 Met [facility] Test 14:40:56 of 2) [code = SHINGLES VACCINES (1 of 2)] Future Scheduled 2022-08-02 COVID-19 VACCINE (3 - Me [facility] Test 14:40:56 Booster for Moderna series) [code = COVID-19 VACCINE (3 - Booster for Moderna series)] Future Scheduled 2022-08-02 INFLUENZA VACCINE [facility] Test 14:40:56 [code = INFLUENZA VACCINE] Future Scheduled 2022-08-01 65+ P[facility]UMOCOCCAL [facility] Test 16:26:39 VACCINE (1 - PCV) [code = 65+ PNEUMOCOCCAL VACCINE (1 - PCV)] Future Scheduled 2022-08-01 Hepatitis C screening [facility] Test 16:26:39 (procedure) [code = [id number]] Future Scheduled 2022-08-01 BREAST CANCER [facility] Test 16:26:39 SCREENING [code = BREAST CANCER SCREENING] Future Scheduled 2022-08-01 COLONOSCOPY SCREENING [facility] Test 16:26:39 [code = COLONOSCOPY SCREENING] Future Scheduled 2022-08-01 SHINGLES VACCINES (1 Met [facility] Test 16:26:39 of 2) [code = SHINGLES VACCINES (1 of 2)] Future Scheduled 2022-08-01 COVID-19 VACCINE (3 - Me [facility] Test 16:26:39 Booster for Moderna series) [code = COVID-19 VACCINE (3 - Booster for Moderna series)] Future Scheduled 2022-08-01 INFLUENZA VACCINE [facility] Test 16:26:39 [code = INFLUENZA VACCINE] Encounters Start End Encounter Admission Attending Care Care Encounter Source Date/Time Date/Time Type Type Clinicians Facility Department ID 2023-02-21 2023-02-21 Office Mattie ePderson2.840.1 [id number] [facility] 08:40:00 11:12:58 Visit Jd Smith50.1.[address] Shaun 3.430.2.7 Hospit a .3.883251 l .8 2023-02-21 2023-02-21 Outpatient BGREPLACED BY [facility] [id number] [place] 00:00:00 00:00:00 JD [facility] 2023-02-19 2023-02-19 Orders Nadeem, 1.2.840.1 [id number] [facility] 00:00:00 00:00:00 Only Olive 07373.1.[address] 3.430.2.7 Hospit a .3.162565 l .8 2023-02-19 2023-02-19 Orders Nadeem 1.2.840.1 [id number] [facility] 00:00:00 00:00:00 Only Olive 25918.1.[address] 3.430.2.7 Hospit a .3.361738 l .8 2023-02-19 2023-02-19 Orders Nadeem 1.2.840.1 [id number] [facility] 00:00:00 00:00:00 Only Olive [address]28.1.[address] 3.430.2.7 Hospit a .3.975339 l .8 2022-10-12 2022-10-12 Office [facility] 1.2.840.1 [id number] Methodi 14:00:00 14:33:15 Visit César 03767.1.[address] [place] 3.430.2.7 Hospit a .3.443130 l .8 2022-10-12 2022-10-12 Travel 1.2.840.1 1.2.235.157 [id number] [facility] 00:00:00 00:00:[address] 3.430.2.7 0.2.7.3.698 Ho spita .3.299273 084.8 l .8 2022-10-12 2022-10-12 Outpatient [facility] [id number] [place] 00:00:00 00:00:00 CÉSAR [address] 2022-10-12 2022-10-12 Outpatient [facility] [id number] [place] 00:00:00 00:00:00 CÉSAR [address] 2022-10-12 2022-10-12 Outpatient [facility] [id number] [place] 00:00:00 00:00:00 CÉSAR [address] 2022-10-10 2022-10-10 Travel 1.2.840.1 1.2.705.045 [id number] [facility] 00:00:00 00:00:[address] 3.430.2.7 0.2.7.3.698 Ho spita .3.473605 084.8 l .8 2022-08-11 2022-08-11 Marylou Pederson 1.2.840.1 [id number] [facility] 00:00:00 00:00:00 [place]d [address]243.1.[address] Shaun 3.430.2.7 Hospit a .3.818910 l .8 2022-08-11 2022-08-11 Marylou Pederson 1.2.840.1 [id number] [facility] 00:00:00 00:00:00 [place] [address].1.[address] Shaun 3.430.2.7 Hospit a .3.560053 l .8 2022-08-09 2022-08-09 Office Bg, 1.2.840.1 [id number] [facility] 10:00:00 15:55:03 [place] [address]395.1.[address] [facility] 3.430.2.7 Hospit a .3.815336 l .8 2022-08-09 2022-08-09 Office Bg, 1.2.840.1 [id number] [facility] 10:00:00 15:55:03 [place] [address].[address] [facility] 3.430.2.7 Hospit a .3.417518 l .8 2022-08-09 2022-08-09 Travel 1.2.840.1 1.2.635.170 [id number] [facility] 00:00:00 00:00:[address] 3.430.2.7 0.2.7.3.698 Ho spita .3.077440 084.8 l .8 2022-08-09 2022-08-09 Travel 1.2.840.1 1.2.156.104 [id number] [facility] 00:00:00 00:00:[address] 3.430.2.7 0.2.7.3.698 Ho spita .3.055842 084.8 l .8 2022-07-07 2022-07-07 Travel 1.2.840.1 1.2.292.376 [id number] [facility] 00:00:00 00:00:[address] 3.430.2.7 0.2.7.3.698 Ho spita .3.888968 084.8 l .8 2022-07-07 2022-07-07 Travel 1.2.840.1 1.2.696.266 [id number] [facility] 00:00:00 00:00:[address] 3.430.2.7 0.2.7.3.698 Ho spita .3.444357 084.8 l .8 2022-06-21 2022-06-21 Refill Bg, 1.2.840.1 [id number] [facility] 00:00:00 00:00:[address] Shaun 3.430.2.7 Hospit a .3.502790 l .8 2022-06-21 2022-06-21 Refill Bg, 1.2.840.1 [id number] [id number] [facility] 00:00:00 00:00:[address] Shaun 3.430.2.7 Hospit a .3.232095 l .8 2022-05-26 2022-05-26 Telephone Thomas, 1.2.840.1 [id number] [facility] 00:00:00 00:00:[address] 3.430.2.7 Hospit a .3.173343 l .8 2022-05-26 2022-05-26 Telephone Thomas, 1.2.840.1 [id number] Method[facility] 00:00:00 00:00:[address] 3.430.2.7 Hospit a .3.551071 l .8 2022-04-25 2022-04-25 Office Bg, 1.2.840.1 [id number] 2099 [id number] Methodi 10:40:00 11:27:38 [place] [address].1.[address] Shaun 3.430.2.7 Hospit a .3.989616 l .8 2022-04-25 2022-04-25 Office Bg, 1.2.840.1 [id number] 2099 [id number] Methodi 10:40:00 11:27:38 [place] 19997.1.[address] Shaun 3.430.2.7 Hospit a .3.991686 l .8 2022-04-25 2022-04-25 Travel 1.2.840.1 1.2.658.956 1199 616215 Methodi 00:00:00 00:00:[address] 3.430.2.7 0.2.7.3.698 Ho spita .3.950392 084.8 l .8 2022-04-25 2022-04-25 Travel 1.2.840.1 1.2.939.469 2025 [id number] Methodi 00:00:00 00:00:[address] 3.430.2.7 0.2.7.3.698 Ho spita .3.670488 084.8 l .8 2022-03-24 2022-03-24 Travel 1.2.840.1 1.2.491.990 9334 858503 Methodi 00:00:00 00:00:[address] 3.430.2.7 0.2.7.3.698 Ho spita .3.253563 084.8 l .8 2022-03-24 2022-03-24 Travel 1.2.840.1 1.2.887.024 4518 660099 Methodi 00:00:00 00:00:[address] 3.430.2.7 0.2.7.3.698 Ho spita .3.074448 084.8 l .8 2022-03-17 2022-03-17 Outpatient SISSON_C [facility] 2021 [place] 00:00:00 00:00:00 0819 [facility] 2022-03-17 2022-03-17 [facility] [place] 00:00:00 00:00:00 Chapin, Community Comm uni MSN, HEMATOLOGY NURSE EDUCATOR, Hospital - ty ROOM WORKER-C: [address] [place] [facility] [facility], [facility] [address], [facility] [address], Ailyn Samsoneny, PALAK MSN, ROOM WORKER-C [id number] , Ph. 2022-03-17 2022-03-17 [facility] [id number] 00:00:00 00:00:00 Juma [id number] 2021-11-18 2021-11-18 Outpatient SISHAYDEN_C [facility] 2021 [place] 03:12:00 03:12:00 0422 [facility] i [facility] 2021-11-18 2021-11-18 [facility] [place] 00:00:00 00:00:00 Sanjay Samson [facility] MSN, HEMATOLOGY NURSE EDUCATOR, Hospital - ty ROOM WORKER-C: [address] [place] [facility], [facility] [address], [facility] [address], Ailyn Samsoneny, PALAK MSN, ROOM WORKER-C [id number] , Ph. 2021-11-18 2021-11-18 [facility] [id number] e-c 00:00:00 00:00:00 Juma [id number] 2021-08-22 2021-08-22 Marylou Pederson, 1.2.840.1 [id number] 2099 [id number] Methodi 00:00:00 00:00:00 [place] [address].1.[address] Shaun 3.430.2.7 Hospit a .3.058083 l .8 2021-08-22 2021-08-22 Wendy Presley 1.2.840.1 [id number] Methodi 00:00:00 00:00:[address] 3.430.2.7 Hospit a .3.821599 l .8 2021-08-15 2021-08-15 Office Bg 1.2.840.1 [id number] 2099 [id number] Methodi 13:20:00 13:40:[place] [address]46.1.[address] Shaun 3.430.2.7 Hospit a .3.048583 l .8 2021-08-15 2021-08-15 Travel 1.2.840.1 1.2.610.814 7298 844393 Methodi 00:00:00 00:00:[address] 3.430.2.7 0.2.7.3.698 Ho spita .3.003997 084.8 l .8 2021-08-11 2021-08-11 [address]1 [id number] 616421 8565 Methodi 14:10:00 14:45:46 Visit Iván Moya 81732.1.[address] 3.430.2.7 Hospit a .3.026987 l .8 2021-08-11 2021-08-11 [facility] [id number] [place] 00:00:00 00:00:00 IVÁN [address] 2021-08-11 2021-08-11 Travel 1.2.840.1 1.2.036.119 6040 298319 Methodi 00:00:00 00:00:[address] 3.430.2.7 0.2.7.3.698 Ho spita .3.880846 084.8 l .8 2021-08-03 2021-08-03 Travel 1.2.840.1 1.2.371.711 7085 665394 Methodi 00:00:00 00:00:[address] 3.430.2.7 0.2.7.3.698 Ho spita .3.706954 084.8 l .8 2021-08-01 2021-08-01 Refill Brittany Stapleton 1.2.840.1 [id number] 2099 [id number] Methodi 00:00:00 00:00:[address] -Xavi 3.430.2.7 [facility] a 3.844786 l .8 2021-06-07 2021-06-07 Outpatient FREYA CHEN [facility] 2100 [id number] [place] 00:00:00 00:00:[address] 2021-06-07 2021-06-07 Outpatient BG [facility] [id number] [place] 00:00:00 00:00:00 JD 812 Method i 2021-06-07 2021-06-07 Outpatient BG, [facility] [id number] [place] 00:00:00 00:00:00 JD 084 Method i 2021-05-18 2021-05-19 Outpatient BG [facility] [id number] [place] 00:00:00 00:00:00 JD 407 Method i 2021-05-09 2021-05-10 Inpatient [facility]NY [facility] 089 [id number] 71 [place] 00:00:00 00:00:00 ERICA 259 Method i 2021-04-11 2021-04-11 Outpatient MAFFET, [facility] [id number] [place] 00:00:00 00:00:00 IVÁN 463 Method i 2021-04-11 2021-04-11 Outpatient MAFFET, [facility] [id number] [place] 00:00:00 00:00:00 IVÁN 835 Method i 2021-03-22 2021-03-22 Outpatient STACIA, [facility] [id number] [place] 00:00:00 00:00:00 FRANKLIN 129 Method i 2021-02-17 2021-02-17 Outpatient KARINA, [facility] [id number] [place] 00:00:00 00:00:00 GEENA 667 Method i 2021-02-17 2021-02-17 Outpatient STACIA, [facility] [id number] [place] 00:00:00 00:00:00 FRANKLIN 487 Method i 2021-02-03 2021-02-03 Outpatient STACIA, [facility] [id number] [place] 00:00:00 00:00:00 FRANKLIN 444 Method i 2021-01-21 2021-01-21 Outpatient ARUNA BRANDON [facility] [id number] [place] 00:00:00 00:00:[address] 2021-01-21 2021-01-21 Outpatient KARINA, [facility] [id number] [place] 00:00:00 00:00:[address] GEENA [address] 2021-01-20 2021-01-20 Outpatient ARUNA BRANDON [facility] [id number] [place] 00:00:00 00:00:[address] 2021-01-10 2021-01-10 Outpatient KARINA, [facility] [id number] [place] 00:00:00 00:00:00 GEENA [address] 2020-12-30 2020-12-30 Outpatient KARINA, [facility] [id number] [place] 00:00:00 00:00:00 GEENA [address] 2020-10-25 2020-10-25 Outpatient MAFFET, [facility] [id number] [place] 00:00:00 00:00:00 IVÁN [address] 2020-10-06 2020-10-06 Outpatient MAFFET, [facility] [id number] [place] 00:00:00 00:00:00 IVÁN [address] 2020-09-06 2020-09-06 Outpatient MAFFET, [facility] [id number] [place] 00:00:00 00:00:00 IVÁN [address] 2020-08-09 2020-08-09 Outpatient MAFFET, [facility] [id number] [place] 00:00:00 00:00:00 IVÁN [address] 2020-07-28 2020-07-28 Outpatient SITTER, [facility] [id number] [place] 00:00:00 00:00:00 JASPREET [address] 2020-07-28 2020-07-28 Outpatient SITTER, [facility] [id number] [place] 00:00:00 00:00:00 JASPREET [address] 2020-07-28 2020-07-28 Outpatient MAFFET, [facility] [id number] [place] 00:00:00 00:00:00 IVÁN [address] 2020-07-02 2020-07-02 Laboratory Lab, Adc Fam Pob I [facility] 1.2. 840.114 [id number] [facility] 16:32:37 16:52:37 Only Unknown, Attending Health 350.1.13.10 ity [facility] 4.2.7.2.686 Ryan as Nadya [phone] Tn dical [facility] [address] 2020-07-02 2020-07-02 Outpatient R UNKNOWN, [facility] [id number] Univers 16:40:00 16:40:00 ATTENDING ity [facility] 2020-07-02 2020-07-02 Outpatient R [facility] [id number] Univers 16:40:00 16:40:00 [facility] Results Test Description Test Time Test Comments Results Result Comments Source SARS-CoV-2 (COVID-19) RNA [Presence] in Respiratory sp ecimen by 2021-05-10 08:45:23 HALEY with probe detection Test Item Value Reference Range Interpretation Comme nts SARS-CoV-2 (COVID-19) RNA [Presence] in Respiratory Not detected No t-Detected specimen by HALEY with probe detection (test code = 45221-7) Whether patient is employed in a healthcare setting (test code = 07671-3) Whether the patient has symptoms related to condition of interest (test code = 50755-8) Patient was hospitalized because of this condition (test code = 17351-9) Whether the patient was admitted to intensive care unit (ICU) for condition of interest (test code = 57277-6) Whether patient resides in a congregate care setting (test code = 90155-9) JOSE MOSHER WESTB-Type Natriuretic [id number] 10:28:00 Test Item Value Reference Range Interpretation Comments B-Type Natriuretic Peptide (test 28.4 pg/mL 0.0-100.0 N code = 202283) Sed Rate ESR ([place])2017-01-19 22:57:00 Test Item Value Reference Range Interpretation Comments ESR (test code = HESR) 10 mm/Hr 0-20 N Comprehensive Metabolic [id number] 21:35:00 Test Item Value Reference Range Interpretation [...] is not provided , and the patient isAfrican-Ameri can, multiply by 1.2 12. If sex is not prov ided, and thepatient is female, multipl y by 0.742. Results for patients <18 ye ars ofage have not been validated by th e MDRD study and shoul d be interpretedwith caution.eGFR Re sult Interpretation: eGFR > or = 60 is in t he Normal RangeeGF R < 60 may mean kidney diseaseeGFR < 1 5 may mean kidney failureRange s recommended by the National Kidney Foundation,http ://nkd ep.nih.gov Lipid Rlvryxt3348-97-64 21:35:00 Test Item Value Reference Range Interpretation Comments Cholesterol (test 229 mg/dL 0-200 H code = CHOL) Triglycerides (test 125 mg/dL 9-200 N code = TRIG) HDL (test code = 39 mg/dL 50-60 L HDL) Chol/HDL (test code 5.9 Ratio 0.0-4.4 H = CHOLPHDL) LDL, Calculated 165 mg/dL 0-130 H (NOTE)RISK O F HEART (test code = LDLC) DISEASEPu blished by [place] Heart AssociationAnal yte Optimal Boderli ne Increased RiskC HOL <200 200-239 >240TRI G <150 150-199 >200HDL Male: >60 <40HDL Fem dano: >60 <50LDL < 100 130-159 >160LDL NEAR OPTIMAL IS 100- 129 VLDL (test code = 25 mg/dL 5-40 N VLDL) LDL/HDL (test code = 4 LDLPHDL) CBC with [id number] 21:33:00 Test Item Value Reference Range Interpretation [...] code = ALYMPH) 2.3 K/cumm 0.5-4.6 N [place] Abs (test code = AMONO) 0.4 K/cumm 0.0-1.2 N Eos Abs (test code = AEOS) 0.30 K/cumm 0.00-0.74 N Baso Abs (test code = ABASO) 0.1 K/cumm 0.00-0.21 N
[2023-02-27] MEDS ORDERED: IBUPROFEN 200 MG TAB PO ONE (18:31)
[2023-02-27] MEDS ORDERED: IBUPROFEN 400 MG TAB ONE (18:31)
--- NOTE | 2023-02-27 19:11 | RAD REPORT ---
EXAM DESCRIPTION: Bryon Single View02/27/2023 6:36 pm CLINICAL HISTORY: Fever COMPARISON: 2018 FINDINGS: The lungs appear clear of acute infiltrate. The heart is mildly enlarged IMPRESSION: No acute abnormalities displayed
[2023-02-27 20:46] LABS: Absolute Lymphocytes (CBC) 1.2 K/uL (0.7-4.9); Hematocrit 37.3 % (36.0-45.0); Lymphocytes % 8.6 % (15.3-44.8); MCV 91.6 fL (80-100); MPV 8.5 fL (7.6-11.3); RBC Red Blood Cell Count 4.07 M/uL (3.86-4.86)
[2023-02-27 20:53] LABS: Protime INR 1.33
[2023-02-27 21:11] LABS: Albumin 3.4 g/dL (3.4-5.0); Bilirubin Total 0.8 mg/dL (0.2-1.0); Potassium 3.8 mEq/L (3.5-5.1); Protein, Total 7.2 g/dL (6.4-8.2)
[2023-02-27 22:10] LABS: Specific Gravity 1.026 (1.005-1.030); Urine Bacteria 20-50 /HPF (<20); Urine Bilirubin NEGATIVE (Negative); Urine Blood 2+ (Negative); Urine Clarity Extremely Turbid (Clear); Urine Color Yellow (Yellow); Urine Glucose NEGATIVE (Negative); Urine Mucus 4+ /HPF (None Seen); Urine Protein 1+ (Negative); Urine RBC 21-50 /HPF (None Seen); Urine Urobilinogen 1+ (Normal)
--- NOTE | 2023-02-27 22:30 | ER ---
Nurse's Notes [facility] Name: Moraima Handy Age: 72 yrs Sex: Female : 1950 Arrival Date: 02/27/2023 Time: 17:25 Bed 16 Private MD: Riky Barajas Diagnosis: Fever presenting with conditions classified elsewhere;UTI/ Urinary tract infection, site not specified Presentation: 02/27 18:10 Chief complaint: Patient states: chills and flu like symptoms onset last night. Pt cm10 reports dry cough. Coronavirus screen: Vaccine status: Patient reports receiving the 2nd dose of the covid vaccine. Ebola Screen: Patient denies travel to an Ebola-affected area in the 21 days before illness onset. No symptoms or risks identified at this time. Initial Sepsis Screen: Does the patient meet any 2 criteria? Temp <36.0*C (96.8*F)) or > 38.3*C (100.9*F). No. Patient's initial sepsis screen is negative. Does the patient have a suspected source of infection? No. Patient's initial sepsis screen is negative. Risk Assessment: Do you want to hurt yourself or someone else? Patient reports no desire to harm self or others. Onset of symptoms was February 26, 2023. 18:10 Method Of Arrival: Wheelchair cm10 18:10 Acuity: ANKIA 4 cm10 Historical: - Allergies: 18:12 GABAPENTIN; cm10 18:12 Levofloxacin; cm10 18:12 atorvastatin; cm10 18:12 Cipro; cm10 18:12 Tape; cm10 - PMHx: 18:12 Hypertension; cm10 - Immunization history:: Adult Immunizations. - Social history:: Smoking status: Patient denies any tobacco usage or history of. Screenin:00 [facility] ED Fall Risk Assessment (Adult) Score/Fall Risk Level 0 - 2 = Low Risk. Abuse eh3 screen: Denies threats or abuse. Denies injuries from another. Nutritional screening: No deficits noted. Tuberculosis screening: No symptoms or risk factors identified. Assessment: 20:00 General: Appears in no apparent distress. comfortable, Behavior is calm, cooperative, eh3 appropriate for age. Pain: Denies pain. Neuro: Level of Consciousness is awake, alert, obeys commands, Oriented to person, place, time, situation. Cardiovascular: Capillary refill < 3 seconds Patient's skin is warm and dry. Respiratory: Airway is patent Respiratory effort is even, unlabored, Respiratory pattern is regular, symmetrical. GI: Abdomen is round non-distended. Derm: Skin is pink, warm \T\ dry. Musculoskeletal: Circulation, motion, and sensation intact. 21:00 Reassessment: Patient appears in no apparent distress at this time. Patient and/or 3 family updated on plan of care and expected duration. Pain level reassessed. Patient is alert, oriented x 3, equal unlabored respirations, skin warm/dry/pink. 22:49 Reassessment: Patient appears in no apparent distress at this time. Patient and/or jb4 family updated on plan of care and expected duration. Pain level reassessed. Patient is alert, oriented x 3, equal unlabored respirations, skin warm/dry/pink. Vital Signs: 18:10 BP 127 / 54; Pulse 82; Resp 18; Temp 102.2(O); Pulse Ox 97% ; Weight 108.41 kg; Height cm10 5 ft. 10 in. ; Pain 8/10; 20:32 BP 113 / 56; Pulse 73; Resp 18; Pulse Ox 94% on R/A; eh3 21:00 BP 114 / 59; Pulse 72; Resp 18; Pulse Ox 93% on R/A; 3 21:08 Temp 99.3; jb4 22:37 BP 129 / 61 LA Supine (auto/lg); Pulse 76; Resp 21; Pulse Ox 99% ; jb4 22:40 BP 126 / 52 LA Sitting (auto/lg); Pulse 82; Resp 27; Pulse Ox 99% on R/A; jb4 22:42 BP 127 / 58 LA Standing (auto/lg); Pulse 80; Resp 21; Pulse Ox 98% on R/A; jb4 18:10 Body Mass Index 34.29 (108.41 kg, 177.8 cm) cm10 18:10 Pain Scale: Adult cm10 ED Course: 17:26 Patient arrived in ED. rg4 17:26 Riky Barajas MD is Private Physician. rg4 17:31 Natacha Vail FNP-C is [facility]. snw 17:31 Alessandro Ford MD is Attending Physician. snw 18:12 Triage completed. cm10 18:13 Arm band placed on Patient placed in waiting room. cm10 18:26 SARS-COV-2 RT PCR Sent. cm10 18:26 Strep Sent. cm10 18:26 Flu Sent. cm10 18:40 Chest Single View XRAY In Process Unspecified. EDMS 20:00 Patient has correct armband on for positive identification. Placed in gown. Bed in low eh3 position. Call light in reach. Side rails up X2. Adult w/ patient. Provided Education on: Use of call lindquist. Client placed on continuous cardiac and pulse oximetry monitoring. NIBP monitoring applied. 20:10 Lakisha Smith, RN is Primary Nurse. eh3 20:12 Inserted saline lock: 20 gauge in right antecubital area, using aseptic technique. eh3 Blood collected. 22:29 Riky Barajas MD is Referral Physician. snw 23:01 No provider procedures requiring assistance completed. IV discontinued, intact, jb4 bleeding controlled, No redness/swelling at site. Pressure dressing applied. Administered Medications: 18:26 Drug: Ibuprofen PO 600 mg Route: PO; cm10 20:30 Follow up: Response: No adverse reaction 3 22:38 Drug: Rocephin IV 1 grams Route: IV; Rate: calculated rate; Site: right antecubital; jb4 Outcome: 22:29 Discharge ordered by . snw 23:01 Discharged to home via wheelchair, with family. jb4 23:01 Condition: stable 23:01 Discharge instructions given to patient, Instructed on discharge instructions, follow up and referral plans. medication usage, Demonstrated understanding of instructions, follow-up care, medications, Prescriptions given X 1. 23:01 Patient left the ED. jb4 Signatures: Dispatcher [employer] EDIN Natacha Vail, IMAGING CENTER MANAGER-C IMAGING CENTER MANAGER-Day Orozco rg4 Thompson Hayes RN RN jb4 Lakisha Smith, RN RN 3 Sadaf Winters, RN RN cm10 Corrections: (The following items were deleted from the chart) 18:13 18:12 PMHx: Congestive heart failure; cm10 cm10 21:28 21:00 Oxygen administration via nasal cannula \T\ 2L/min eh3 eh3
--- NOTE | 2023-02-27 22:30 | EDPHYS ---
Physician Documentation [facility] Name: Moraima Handy Age: 72 yrs Sex: Female : 1950 Arrival Date: 02/27/2023 Time: 17:25 Bed 16 Private MD: Riky Barajas ED Physician Alessandro Ford HPI: 02/27 18:29 This 72 yrs old Female presents to ER via Wheelchair with complaints of Flu Symptoms. snw 18:29 Onset: The symptoms/episode began/occurred suddenly, yesterday. Associated signs and snw symptoms: Pertinent positives: chills, fever, sore throat. The patient has not experienced similar symptoms in the past. It is unknown whether or not the patient has recently seen a physician. sees Dr. Barajas. Historical: - Allergies: 18:12 GABAPENTIN; cm10 18:12 Levofloxacin; cm10 18:12 atorvastatin; cm10 18:12 Cipro; cm10 18:12 Tape; cm10 - PMHx: 18:12 Hypertension; cm10 - Immunization history:: Adult Immunizations. - Social history:: Smoking status: Patient denies any tobacco usage or history of. ROS: 18:28 Eyes: Negative for injury, pain, redness, and discharge. snw 18:28 Neck: Negative for injury, pain, and swelling, Cardiovascular: Negative for chest pain, palpitations, and edema, Respiratory: Negative for shortness of breath, cough, wheezing, and pleuritic chest pain. 18:28 Back: Negative for injury and pain, : Negative for injury, bleeding, discharge, and swelling, MS/Extremity: Negative for injury and deformity, Skin: Negative for injury, rash, and discoloration, Neuro: Negative for headache, weakness, numbness, tingling, and seizure, Psych: Negative for depression, anxiety, suicide ideation, homicidal ideation, and hallucinations. 18:28 Constitutional: Positive for body aches, chills, fatigue, fever, malaise. 18:28 ENT: Positive for sore throat. 18:28 Abdomen/GI: Positive for abdominal cramps. Exam: 18:27 Head/Face: Normocephalic, atraumatic. Eyes: Pupils equal round and reactive to light, snw extra-ocular motions intact. Lids and lashes normal. Conjunctiva and sclera are non-icteric and not injected. Cornea within normal limits. Periorbital areas with no swelling, redness, or edema. 18:27 Neck: Trachea midline, no thyromegaly or masses palpated, and no cervical lymphadenopathy. Supple, full range of motion without nuchal rigidity, or vertebral point tenderness. No Meningismus. Chest/axilla: Normal chest wall appearance and motion. Nontender with no deformity. No lesions are appreciated. Cardiovascular: Regular rate and rhythm with a normal S1 and S2. No gallops, murmurs, or rubs. Normal PMI, no JVD. No pulse deficits. Respiratory: Lungs have equal breath sounds bilaterally, clear to auscultation and percussion. No rales, rhonchi or wheezes noted. No increased work of breathing, no retractions or nasal flaring. 18:27 Back: No spinal tenderness. No costovertebral tenderness. Full range of motion. Skin: Warm, dry with normal turgor. Normal color with no rashes, no lesions, and no evidence of cellulitis. MS/ Extremity: Pulses equal, no cyanosis. Neurovascular intact. Full, normal range of motion. Neuro: Awake and alert, GCS 15, oriented to person, place, time, and situation. Cranial nerves II-XII grossly intact. Motor strength 5/5 in all extremities. Sensory grossly intact. Cerebellar exam normal. Normal gait. Psych: Awake, alert, with orientation to person, place and time. Behavior, mood, and affect are within normal limits. 18:27 Constitutional: The patient appears alert, awake, febrile, obese, uncomfortable. 18:27 ENT: External ear(s): are unremarkable, Ear canal(s): are normal, Nose: is normal, Mouth: Tongue: black from pepto bismol ingestion prior to arrival, Posterior pharynx: erythema, that is moderate, Voice: is normal. 18:27 Abdomen/GI: Inspection: obese Bowel sounds: normal, Palpation: mild abdominal tenderness, in all quadrants. Vital Signs: 18:10 BP 127 / 54; Pulse 82; Resp 18; Temp 102.2(O); Pulse Ox 97% ; Weight 108.41 kg; Height cm10 5 ft. 10 in. ; Pain 8/10; 20:32 BP 113 / 56; Pulse 73; Resp 18; Pulse Ox 94% on R/A; eh3 21:00 BP 114 / 59; Pulse 72; Resp 18; Pulse Ox 93% on R/A; eh3 21:08 Temp 99.3; jb4 22:37 BP 129 / 61 LA Supine (auto/lg); Pulse 76; Resp 21; Pulse Ox 99% ; jb4 22:40 BP 126 / 52 LA Sitting (auto/lg); Pulse 82; Resp 27; Pulse Ox 99% on R/A; jb4 22:42 BP 127 / 58 LA Standing (auto/lg); Pulse 80; Resp 21; Pulse Ox 98% on R/A; jb4 18:10 Body Mass Index 34.29 (108.41 kg, 177.8 cm) cm10 18:10 Pain Scale: Adult cm10 MDM: 18:18 Patient medically screened. snw 18:25 Differential diagnosis: viral Infection, bacterial infection, bronchitis, pneumonia snw UTI. Data reviewed: vital signs, nurses notes. ED course: Sees Dr. Barajas. 18:30 ED course: took tylenol 2 hours ago. snw 02/27 18:19 Order name: Blood Culture Adult (2) snw 02/27 18:19 Order name: CBC with Diff; Complete Time: 20:50 snw 02/27 18:19 Order name: CMP; Complete Time: 22:28 snw 02/27 18:19 Order name: Lactate w/ 2H reflex if indic.; Complete Time: 21:02 snw 02/27 18:19 Order name: Protime (+inr); Complete Time: 21:02 snw 02/27 18:19 Order name: Ptt, Activated; Complete Time: 21:02 snw 02/27 18:19 Order name: Urinalysis w/ reflexes; Complete Time: 22:13 snw 02/27 18:19 Order name: Flu; Complete Time: 19:06 snw 02/27 18:19 Order name: Strep; Complete Time: 19:06 snw 02/27 18:19 Order name: SARS-COV-2 RT PCR; Complete Time: 19:14 snw 02/27 18:51 Order name: Throat Culture EDMS 02/27 21:26 Order name: Add On-Lab snw 02/27 22:00 Order name: Troponin High Sensitivity; Complete Time: 22:28 EDMS 02/27 22:15 Order name: Urine Culture EDIA 02/27 18:19 Order name: Chest Single View XRAY; Complete Time: 19:14 snw 02/27 18:19 Order name: EKG; Complete Time: 18:20 snw 02/27 18:19 Order name: Accucheck; Complete Time: 20:32 snw 02/27 18:19 Order name: Cardiac monitoring; Complete Time: 20:32 snw 02/27 18:19 Order name: EKG - Nurse/Tech; Complete Time: 21:27 snw 02/27 18:19 Order name: IV Saline Lock - Large Bore; Complete Time: 20:32 snw 02/27 18:19 Order name: Labs collected and sent; Complete Time: 20:32 snw 02/27 18:19 Order name: O2 Per Protocol; Complete Time: 20:32 snw 02/27 18:19 Order name: O2 Sat Monitoring; Complete Time: 20:32 snw 02/27 18:19 Order name: Vital Signs; Complete Time: 20:32 snw 02/27 19:33 Order name: Recheck Vital Signs; Complete Time: 20:32 snw 02/27 22:30 Order name: Orthostatics; Complete Time: 23:00 snw EC:25 Rate is 77 beats/min. Rhythm is regular. Left axis deviation noted. [place] interval is snw normal. QRS interval is prolonged. Clinical impression: NSR w/ Non-specific ST/T Changes. Administered Medications: 18:26 Drug: Ibuprofen PO 600 mg Route: PO; cm10 20:30 Follow up: Response: No adverse reaction eh3 22:38 Drug: Rocephin IV 1 grams Route: IV; Rate: calculated rate; Site: right antecubital; jb4 Disposition Summary: 02/27/23 22:29 Discharge Ordered Location: Home snw Condition: Stable snw Diagnosis - Fever presenting with conditions classified elsewhere snw - UTI/ Urinary tract infection, site not specified snw Followup: snw - With: - When: 1 - 2 days - Reason: Recheck today's complaints, Continuance of care, Re-evaluation by your physician Followup: snw - With: Emergency Department - When: As needed - Reason: Worsening of condition Discharge Instructions: - Discharge Summary Sheet snw - Fever, Adult snw - Urinary Tract Infection, Adult snw - Rehydration, Elderly snw - Mindfulness-Based Stress Reduction snw Forms: - Medication Reconciliation Form snw - Thank You Letter snw - Antibiotic Education snw - Prescription Opioid Use snw - Patient Portal Instructions snw Prescriptions: - Augmentin 875-125 mg Oral Tablet - take 1 tablet by ORAL route every 12 hours for 10 days; 20 tablet; Refills: 0, snw Product Selection Permitted Signatures: Dispatcher [employer] EDMS Natacha Vail, GLUE MIXER-C GLUE MIXER-Csnw Thompson Hayes RN RN jb4 Sadaf Winters RN RN cm10 Lakisha Smith RN eh3 Corrections: (The following items were deleted from the chart) 18:13 18:12 PMHx: Congestive heart failure; cm10 cm10
[2023-02-27] MEDS ORDERED: CEFTRIAXONE 1000 MG/VIAL ONE (22:37)
[2023-02-27 23:29] VITALS: TEMP 99.3
[2023-02-27 23:34] VITALS: BP 127/58; O2SAT 98
--- NOTE | 2023-02-28 17:33 | EKG ---
Test Date: 2023-02-27 Test Time: 21:20:35 Slicing Machine Operator: YOSI MEASUREMENT RESULTS: Intervals: Rate: 77 TX: 148 QRSD: 98 QT: 390 QTc: 441 [place]: P: 11 TX: 148 QRS: -40 T: 2 INTERPRETIVE STATEMENTS: Normal sinus rhythm Left axis deviation Possible Anterior infarct, age undetermined T wave abnormality, consider lateral ischemia Abnormal ECG Compared to ECG 01/13/2022 17:34:21 Left-axis deviation now present Myocardial infarct finding now present T-wave abnormality now present Possible ischemia now present ST (T wave) deviation no longer present Electronically Signed On 02-28-23 17:31:05 CDT by Aiden Joseph
== END 2023-02-27 23:01 | disposition home or self-care (01) ==
LOC: ER 17:25
DX: N39.0 Urinary tract infection, site not specified (principal); Z20.822 Contact with and (suspected) exposure to COVID-19; Z88.1 Allergy status to other antibiotic agents; Z88.3 Allergy status to other anti-infective agents; Z88.8 Allergy status to other drugs, medicaments and biological substances; Z91.048 Other nonmedicinal substance allergy status
CPT/HCPCS: 87040 ×2; 87070; 87088; 85025; 81001; 87086; 36415; 85610; 87081; 83605; 85730; 84484; 80053; 87635; 87804 ×2; 71045; J0696; 93005